=== PATIENT | female | born 1960 | race Caucasian/White ===

== ENCOUNTER 2022-11-13 08:13 | Outpatient (AMB) | payer OTHER, SELFPAY ==
--- OUTSIDE RECORDS SUMMARY | 2022-11-13 08:15 | XMS_ITS | Continuity of Care Document ---
Author Name Unknown Organization [facility] Address [address], [address], [address] [place] [phone]- Care Team Providers Care Sleep Technician Name Role Phone Azul FARNSWORTH, Dann Primary Care Physici an Encounter [facility] [place] Date(s): 02/04/20 - 03/05/20 [facility] [address], [address], [address] [place] [phone]- Allergies, Adverse Reactions, Alerts Substance Reaction Severity Status lisinopril Cough Active Vicodin itching Active Immunizations Given and Recorded Vaccine Date Status Refusal Reason Influenza Virus Vaccine (oldterm) 01/13/18 Recorde d diphtheria/tetanus/pertussis, acel(DTaP) 04/03/07 Recorded pneumococcal 23-valent vaccine 04/03/99 Recorded Medications aspirin 325 mg oral delayed release tablet 325 mg, 1, tablet, By Mouth, Daily, # 30 tablet, Refills 0, Maintenance, 10/07/19 15:25:00 EDT Start Date: 10/07/19 Status: Ordered buPROPion 200 mg/12 hours (SR) oral tablet, extended release 1 tablet = 200 mg, By Mouth, Daily, # 60 tablet, 0 Refills, Maintenance, 10/07/19 15:24:00 EDT, ER Tablet Start Date: 10/07/19 Status: Ordered Eliquis 5 mg oral tablet 1 tablet = 5 mg, By Mouth, 2 times a day, # 60 tablet, 0 Refills, Maintenance, 10/07/19 16:43:00 EDT, Tablet, [facility] #[id number], 159, cm, 10/07/19 15:22:00 EDT, Height, 91, kg, 06/04/18 11:18:00 EDT, Dry Weight Start Date: 10/07/19 Status: Ordered LORazepam 1 mg oral tablet 1 tablet = 1 mg, By Mouth, 2 times a day, PRN for anxiety, 0 Refills, Maintenance, 11/14/15 18:26:19 EDT, Tablet Start Date: 11/14/15 Status: Ordered losartan 50 mg oral tablet 1 tablet, By Mouth, Daily, # 90 tablet, 0 Refills, Maintenance, 12/29/19 17:37:00 EDT, [facility][id number], 159, cm, 10/12/19 10:28:00 EDT, Height, 91, kg, 06/04/18 11:18:00 EDT, Dry Weight Start Date: 12/29/19 Status: Ordered Nature-Throid 32.5 mg oral tablet 1 tablet = 32.5 mg, By Mouth, Daily, # 30 tablet, 0 Refills, Maintenance, 10/07/19 15:25:00 EDT, Tablet Start Date: 10/07/19 Status: Ordered Vitamin B12 100 mcg oral tablet 1 tablet = 100 mcg, By Mouth, Daily, # 30 tablet, 0 Refills, Maintenance, 10/01/18 14:32:59 EDT, Tablet Start Date: 10/01/18 Status: Ordered Vitamin D3 oral tablet 2 tablet = 800 International_Units, By Mouth, Daily, 0 Refills, Maintenance, 10/01/18 14:33:37 EDT Start Date: 10/01/18 Status: Ordered Vyvanse 10 mg oral capsule 2 capsule = 20 mg, TK 1 C PO BID, 0 Refills Start Date: 07/23/19 Status: Ordered Problem List Condition Effective Dates Status Health Status Inform ant Alcohol abuse(Confirmed) Active Amnesia(Confirmed) Active Anxiety(Confirmed) Active Asthma(Confirmed) Active Atrial fibrillation(Confirmed) Active Attention deficit hyperactiv ity disorder, predominantly inattentive type(Confirmed) Active Carpal tunnel syndrome(Confirmed) Active Cerebrovascular accident(Confirmed) Active Chronic pain(Confirmed) 1 Active Chronic type B viral hepatitis(Confirmed) Active Vitamin B12 deficiency(Confirmed) Active Depression(Confirmed) Active Disorder of parathyroid gland(Confirmed) Active Gastroesophageal reflux disease(Confirmed) Active History of cerebrovascular accident(Confirmed) Active Hypertension(Confirmed) Active Hypertensive renal disease(Confirmed) Active Hypothyroidism(Confirmed) Active Iron deficiency anemia(Confirmed) Active Cerebellar atrophy(Confirmed) Active Major depressive disorder(Confirmed) Active Migraine(Confirmed) Active Myoclonus(Confirmed) Active Obesity(Confirmed) Active Obstructive sleep apnea syndrome(Confirmed) Active Osteopenia(Confirmed) Active Primary hyperparathyroidism/ S/P parathyroidectomy and R lobe thyroidectomy(Confirmed) Active Sleep apnea(Confirmed) Active Vitamin D deficiency(Confirmed) Active 1L hand
--- OUTSIDE RECORDS SUMMARY | 2022-11-13 08:15 | XMS_ITS | Continuity of Care Document ---
Author Name Unknown Organization [facility] Address Unknown Care Team Providers Care House Calls Nurse Name Role Phone Azul FARNSWORTH, Dann Primary Care Physici an Encounter [facility] [place] Date(s): 09/07/20 - 01/05/21 [facility] Attending Physician: Betty Bourgeois MD Admitting Physician: Betty Bourgeois MD Referring Physician: Dann Liang MD Allergies, Adverse Reactions, Alerts Substance Reaction Severity Status lisinopril Cough Active Vicodin itching Active Immunizations Given and Recorded Vaccine Date Status Refusal Reason SARS-CoV-2 (COVID-19) mRNA-1273 vaccine 07/08/20 R ecorded Influenza Virus Vaccine (oldterm) 01/13/18 Recorde d [...] 0 Refills, Maintenance, 10/07/19 16:43:00 EDT, Tablet, [facility] #[id number], 159, cm, 10/07/19 15:22:00 EDT, Height, 91, kg, 06/04/18 11:18:00 EDT, Dry Weight Start Date: 10/07/19 Status: Ordered levothyroxine 0.1 mg oral tablet 1 tablet = 100 mcg, By Mouth, Daily, # 30 tablet, 0 Refills, Maintenance, 09/22/20 7:56:00 EDT, Tablet, Partial fill upon patient request if the prescription is for a schedule II opioid drug. Start Date: 09/22/20 Status: Ordered LORazepam 1 mg oral tablet 1 tablet = 1 mg, By Mouth, 2 times a day, PRN for anxiety, 0 Refills, Maintenance, 11/14/15 18:26:19 EDT, Tablet Start Date: 11/14/15 Status: Ordered losartan 50 mg oral tablet 1 tablet, By Mouth, Daily, # 90 tablet, 0 Refills, [facility] #[id number], 159, cm, 10/12/19 10:28:00 EDT, Height Start Date: 12/22/20 Status: Ordered Vitamin B12 100 mcg oral [...]
--- OUTSIDE RECORDS SUMMARY | 2022-11-13 08:15 | XMS_ITS | Continuity of Care Document ---
Author Name Unknown Organization [facility] Address Unknown Care Team Providers Care General Ledger Bookkeeper Name Role Phone Dann Liang MD Primary Care Physici an Encounter [facility] [place] Date(s): 01/26/21 - 04/06/21 [facility] Attending Physician: Betty Bourgeois MD Admitting Physician: Betty Bourgeois MD Referring Physician: Dann Liang MD Allergies, Adverse Reactions, Alerts Substance Reaction Severity Status lisinopril Cough Active Vicodin itching Active Immunizations Given and Recorded Vaccine Date Status Refusal Reason SARS-CoV-2 (COVID-19) mRNA-1273 vaccine 09/11/20 R ecorded SARS-CoV-2 (COVID-19) mRNA-1273 vaccine 07/08/20 R ecorded Influenza Virus Vaccine (oldterm) 01/13/18 Recorde d diphtheria/tetanus/pertussis, acel(DTaP) 04/03/07 Recorded pneumococcal 23-valent vaccine 04/03/99 Recorded Medications apixaban 5 mg oral tablet 1 tablet = 5 mg, By Mouth, 2 times a day, # 180 tablet, 3 Refills, Maintenance, 03/07/21 15:00:00 EST, Tablet, [facility] #[id number], Partial fill upon patient request if the prescription is for a schedule II opioid drug., 161, cm, 01/23/21 13:1... Start Date: 03/07/21 Status: Ordered aspirin 81 mg oral delayed release tablet 81 mg, 1, tablet, By Mouth, Daily, Patient was told that Aspirin and apixaban together would slightly increase bleeding risk., # 90 tablet, Refills 3, Tot. Refills 3, Maintenance, 03/07/21 15:03:00 EST, Route to Pharmacy Electronically, [facility] Start Date: 03/07/21 Status: Ordered buPROPion 200 mg/12 hours (SR) oral tablet, extended release 1 tablet = 200 mg, By Mouth, Daily, # 60 tablet, 0 Refills, Maintenance, 10/07/19 15:24:00 EDT, ER Tablet Start Date: 10/07/19 Status: Ordered levothyroxine 0.1 [...] Mouth, Daily, # 90 tablet, 0 Refills, [facility] #[id number], 159, cm, 10/12/19 10:28:00 EDT, Height Start [...] viral hepatitis(Confirmed) Active Vitamin B12 deficiency(Confirmed) Active Disorder of parathyroid gland(Confirmed) Active Gastroesophageal reflux disease(Confirmed) Active History of cerebrovascular accident(Confirmed) Active Hypertension(Confirmed) Active Hypertensive renal disease(Confirmed) Active Hypothyroidism(Confirmed) Active Iron deficiency anemia(Confirmed) Active Cerebellar atrophy(Confirmed) Active Major depressive disorder(Confirmed) Active Migraine(Confirmed) Active Myoclonus(Confirmed) Active Obese class I(Confirmed) Active Obesity(Confirmed) Active Obstructive sleep apnea syndrome(Confirmed) Active Osteopenia(Confirmed) Active Primary hyperparathyroidism/ S/P parathyroidectomy and R lobe thyroidectomy(Confirmed) Active Sleep apnea(Confirmed) Active Vitamin D deficiency(Confirmed) Active 1L hand Social History Social History Type Response Smoking Status Former smoker, quit more than 30 days ago entered on: 01/23/21 Sex
--- OUTSIDE RECORDS SUMMARY | 2022-11-13 08:15 | XMS_ITS | Continuity of Care Document ---
Author Name Unknown Organization [facility] Address Unknown Care Team Providers Care Rivet Spinner Name Role Phone Azul FARNSWORTH, aDnn Primary Care Physici an Encounter [facility] [place] Date(s): 12/06/20 - 01/05/21 [facility] Attending Physician: Blue Bradshaw Admitting Physician: Blue Bradshaw Referring Physician: Blue Bradshaw Allergies, Adverse Reactions, Alerts Substance Reaction Severity [...] 0 Refills, Maintenance, 10/07/19 16:43:00 EDT, Tablet, [facility] #[id number], 159, cm, 10/07/19 15:22:00 EDT, Height, 91, [...] Mouth, Daily, # 90 tablet, 0 Refills, [facility] #[id number], 159, cm, 10/12/19 10:28:00 EDT, Height Start [...]
--- OUTSIDE RECORDS SUMMARY | 2022-11-13 08:15 | XMS_ITS | Continuity of Care Document ---
Author Name Unknown Organization [facility] Address [address] [facility], [address] Floor, [address] [place] [phone]- Care Team Providers Care Software Engineer Mobile Name Role Phone Azul FARNSWORTH, Dann Primary Care Physici an Encounter [facility] [place] Date(s): 02/07/20 - 03/24/20 [facility] [address], [address], [address] [place] [phone]- Attending Physician: Betty Bourgeois MD Admitting Physician: Betty Bourgeois MD Referring Physician: Ramakrishna Krishnan MD Allergies, Adverse Reactions, Alerts Substance Reaction [...] 0 Refills, Maintenance, 10/07/19 16:43:00 EDT, Tablet, [facility] #[id number], 159, cm, 10/07/19 15:22:00 EDT, Height, 91, [...] Daily, # 90 tablet, 0 Refills, Maintenance, 03/22/20 9:16:00 EST, [facility] #[id number], 159, cm, 10/12/19 10:28:00 EDT, Height, 91, kg, 06/04/18 11:18:00 EDT, Dry Weight Start Date: 03/22/20 Status: Ordered Nature-Throid 32.5 mg oral tablet [...]
--- OUTSIDE RECORDS SUMMARY | 2022-11-13 08:15 | XMS_ITS | Continuity of Care Document ---
Author Name Unknown Organization [facility] Address Unknown Care Team Providers Care Line Production Cook Name Role Phone Azul FARNSWORTH, Dann Primary Care Physici an Encounter [facility] [place] Date(s): 12/06/20 - 01/05/21 [facility] Allergies, Adverse Reactions, Alerts Substance Reaction Severity [...] Maintenance, 10/07/19 16:43:00 EDT, Tablet, [facility] #[id number], 159, cm, 10/07/19 15:22:00 EDT, Height, 91, [...] Mouth, Daily, # 90 tablet, 0 Refills, [facility] #[id number], 159, cm, 10/12/19 10:28:00 EDT, Height Start [...]
--- OUTSIDE RECORDS SUMMARY | 2022-11-13 08:15 | XMS_ITS | Continuity of Care Document ---
Author Name Unknown Organization [facility] Address [address] [facility], [address] Floor, [address] [place] [phone]- Care Team Providers Care Superintendent Electric Power Name Role Phone Azul FARNSWORTH, Dann Primary Care Physici an [place] [facility] [place] Date(s): 02/23/20 - 03/24/20 [facility] [address], [address], [address] [place] [phone]- Attending Physician: Blue Bradshaw Admitting Physician: AdmBlue resendiz Referring Physician: AdmtrBlue Allergies, Adverse Reactions, Alerts Substance Reaction Severity [...] 0 Refills, Maintenance, 10/07/19 16:43:00 EDT, Tablet, [facility] #[id number], 159, cm, 10/07/19 15:22:00 EDT, Height, 91, [...] Refills, Maintenance, 03/22/20 9:16:00 EST, [facility] #[id number], 159, cm, 10/12/19 10:28:00 EDT, Height, 91, [...]
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
[2022-11-13 08:33] VITALS: BP 142/74; PULSE 64; RESP 16; TEMP 37.2; O2SAT 99; BMI 27.7
== END 2022-11-13 09:15 | disposition home or self-care (01) ==
PROVIDERS: PCP Internal Medicine; Visit Provider Family Medicine
DX: T30.0 Burn of unspecified body region, unspecified degree (principal); Z23 Encounter for immunization
CPT/HCPCS: 90471; 90715; 99203

== ENCOUNTER 2023-12-02 22:37 | Inpatient (IN) | payer OTHER, SELFPAY ==
--- NOTE | ~2023-12-02 | MR_ITS ---
EXAMINATION: MR BRAIN WITHOUT CONTRAST CLINICAL INFORMATION: Assessment of stroke injury. COMPARISON: CT head 10/22/2014. MR brain 09/05/2014. TECHNIQUE: MRI of the brain was obtained using routine sequences without contrast. FINDINGS: There is a small chronic cortical infarcts involving the right parietal lobe. A few tiny chronic infarcts are also visualized within both occipital lobes and within the cerebellar vermis. No acute territorial infarct. No pathological magnetic susceptibility artifact. Intracranial vascular flow voids are maintained. There is no intracranial mass effect or midline shift. No abnormal extra-axial collection. Lateral and third ventricles are normal. No hydrocephalus. Midline structures including the cervicomedullary junction are normal. No acute bone marrow signal changes. There is no mastoid or middle ear effusion. Trivial mucosal thickening within the ethmoid air cells. Globes and orbits are symmetric. MR/MR head/brain wo con IMPRESSION: Stable examination with a few small chronic cortical infarcts involving the right parietal lobe, both occipital lobes, and the cerebellar vermis. Otherwise unremarkable examination. No evidence of acute territorial infarct or hemorrhage. Electronically signed by: Tarik Collins MD 12/06/2023 06:03 PM EDT
[2023-12-02 22:41] VITALS: BP 152/98; PULSE 77; RESP 118; TEMP 36.6; O2SAT 97; BMI 25.7
[2023-12-02 23:15] LABS: Hematocrit 41.2 % (37.0-47.0); Hemoglobin 13.9 g/dl (12.0-16.0); Mean Corpuscular HGB Conc 33.7 g/dl (31.0-35.0); Mean Platelet Volume 9.8 fL (9.4-12.3); Platelet Count 290 X10*3/uL (160-400); Red Blood Count 4.79 X10*6/uL (4.20-5.50); Red Cell Distribution Width 12.6 % (11.0-16.0); White Blood Count 6.9 X10*3/uL (4.8-10.8)
[2023-12-02 23:36] LABS: Acetaminophen LAB < 3 mcg/mL (<30); Alanine Aminotransferase 11 U/L (0-31); Albumin Level 4.9 g/dL (3.5-5.0); Alkaline Phosphatase 59 U/L (39-117); Anion Gap 15 (12-20); Aspartate Amino Transferase 16 U/L (5-31); Bilirubin Total 0.6 mg/dL (0.0-1.0); Blood Urea Nitrogen 8 mg/dL (9-16); Calcium 10.8 mg/dL (8.4-10.2); Carbon Dioxide 25 mmol/L (22-29); Chloride 107 mmol/L (96-108); Creatinine Clr Calc Pharmacy 55.9; Estimated Glomerular Filt Rate 60; Ethanol < 10 mg/dL; Glucose Random 106 mg/dL (60-115); Potassium 3.6 mmol/L (3.3-5.1); Sodium 143 mmol/L (135-145); Total Protein 7.7 g/dL (6.5-8.0)
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
[2023-12-03 01:39] LABS: Amphetamine Screen Urine Not Detected (Not Detect); Barbiturates, Urine Not Detected (Not Detect); Benzodiazepines Screen Urine POSITIVE (Not Detect); Buprenorphine Scr Not Detected (Not Detect); Cannabinoid Screen Urine POSITIVE (Not Detect); Cocaine Screen Urine Not Detected (Not Detect); Fentanyl, urine Not Detected (Not Detect); Methadone Screen, Urine Not Detected (Not Detect); Opiate Screen Urine Not Detected (Not Detect); Oxycodone Screen Urine Not Detected (Not Detect); Phencyclidine Screen Urine Not Detected (Not Detect)
[2023-12-03 01:40] LABS: Appearance Urine Clear; Color Urine Yellow; Glucose Urine UA Negative (Negative); Leukocyte Esterase Urine Negative (Negative); Nitrite Urine Negative (Negative); Specific Gravity - Urine <= 1.005 (1.005-1.025); Urine Blood Negative (Negative); Urine Ketones Negative (Negative); Urine Protein Negative (Neg-Trace)
[2023-12-03 02:04] VITALS: BP 152/98
[2023-12-03] MEDS: traZODone HCL 25 MG HALFTAB PO (02:04)
[2023-12-03] MEDS: Doxazosin Mesylate 2 MG TABLET 4 MG PO ×2 (02:04→21:11)
--- NOTE | 2023-12-03 02:32 | PC.NURSE ---
Dustin Peraza [phone] Mayi [phone]
[2023-12-03] MEDS: Levothyroxine Sodium 100 MCG TABLET PO (06:30)
[2023-12-03 07:26] VITALS: BP 127/62; PULSE 59; RESP 14; TEMP 36.6; O2SAT 97
--- NOTE | 2023-12-03 08:01 | ECG_ITS ---
Test Reason : CHECH FOR PROLONGED QT Blood Pressure : / mmHG Vent. Rate : 047 BPM Atrial Rate : 047 BPM P-R Int : 182 ms QRS Dur : 080 ms QT Int : 448 ms P-R-T Axes : 063 016 040 degrees QTc Int : 396 ms Sinus bradycardia Otherwise normal ECG When compared with ECG of 19-JUL-2016 11:41, Nonspecific T wave abnormality no longer evident in Lateral leads Referred By: Generic ED Physician Electronically Signed By:TERENCE HICKS
--- NOTE | 2023-12-03 08:57 | MHC.CARE ---
[facility] form and assessment faxed today 12/03/23.
[2023-12-03] MEDS: busPIRone HCl 5 MG TABLET 7.5 MG PO ×2 (09:21→21:10)
[2023-12-03] MEDS: Amphetamine Mixed Salts 10 MG TABLET 5 MG PO (09:21)
[2023-12-03 15:13] VITALS: BP 143/73; PULSE 68; RESP 16; TEMP 36.8; O2SAT 97
[2023-12-03] MEDS: Magnesium Hydrox/Alum Hydrox 30 ML ORAL.SUSP PO (16:53)
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
[2023-12-03 20:00] VITALS: BP 146/91; PULSE 86; RESP 16; TEMP 36.9; O2SAT 93
[2023-12-03] MEDS: Acetaminophen 325 MG TABLET 650 MG PO (20:33)
[2023-12-03] MEDS: traZODone HCL 50 MG TABLET PO (21:10)
[2023-12-04] MEDS: Levothyroxine Sodium 100 MCG TABLET PO (06:31)
[2023-12-04 07:00] VITALS: BMI 26.1
[2023-12-04 07:45] VITALS: BP 139/79; PULSE 73; RESP 16; TEMP 36.4; O2SAT 95
[2023-12-04] MEDS: busPIRone HCl 5 MG TABLET 7.5 MG PO ×2 (08:19→21:16)
[2023-12-04 09:28] LABS: Estimated Average Glucose 103 mg/dL; Hemoglobin A1C 117.2387 umol/L; Hemoglobin A1c % 5.2 % (<6.0); Total Hemoglobin (HGBA1C) 3541.4948 umol/L
[2023-12-04 09:38] LABS: Cholesterol 187 mg/dL (<200); HDL Cholesterol 63 mg/dL (>40); LDL Cholesterol Calculated 108 mg/dL (<100); Triglycerides 80 mg/dL (<150)
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
[2023-12-04 09:58] LABS: Thyroid Stimulating Hormone 1.83 uIU/mL (0.32-4.0)
[2023-12-04 10:10] LABS: Folate 8.7 ng/mL (> or = 4.0); Vitamin B12 365 pg/mL (200-900)
[2023-12-04] MEDS: Acetaminophen 325 MG TABLET 650 MG PO (12:31)
[2023-12-04 20:00] VITALS: BP 140/77; PULSE 66; RESP 14; TEMP 36.1; O2SAT 98
[2023-12-04] MEDS: traZODone HCL 50 MG TABLET PO (21:17)
[2023-12-04] MEDS: Divalproex Sodium ER 500 MG TAB.ER.24H PO (21:17)
[2023-12-04] MEDS: chlorproMAZINE HCl 25 MG TABLET 50 MG PO (21:17)
[2023-12-04] MEDS: Doxazosin Mesylate 2 MG TABLET 4 MG PO (21:17)
[2023-12-05] MEDS: LORazepam 1 MG TABLET PO ×2 (05:48→22:25)
[2023-12-05] MEDS: Levothyroxine Sodium 100 MCG TABLET PO (05:48)
[2023-12-05 08:00] VITALS: BP 128/61; PULSE 107; RESP 16; TEMP 36.4; O2SAT 97
[2023-12-05] MEDS: busPIRone HCl 5 MG TABLET 7.5 MG PO ×2 (08:27→22:20)
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
--- NOTE | 2023-12-05 14:05 | HO.PSYCHPN ---
Subjective Subjective Date of Service: 12/05/23 Reason For Visit: Paranoia Interim History: much more calm and organized today, less labile and reactive. feels improved. slept well. would like to keep meds the same through friday then reassess. per staff, taking meds, visible. super high anxiety. up at 0400 tearful. had ativan close to 6 and back to sleep. slept 8 hours. Mental Status Exam Mental Status Exam Narrative: adequately dressed and groomed. no PMA/PMR. cooperative. speech incr rate, nml amount. nml loudness. decr latency. thoughts much more linear, logical. affect constricted, normo-intense, non-labile. mood improved. no SI/SIBI/HI/AVH expressed. Diagnostics Vital Signs (24Hr): Vital Signs - 24 hr 12/04/23 20:00 12/05/23 08:00 Temperature 97 F 97.6 F Pulse Rate 66 107 H Respiratory Rate 14 16 Blood Pressure 140/77 H 128/61 Pulse Oximetry 98 97 Oxygen Delivery Method Room Air Room Air BMI result Body Mass Index 26.1 Labs 12/02/23 23:10 12/02/23 23:10 Labs: Laboratory Results - last 48 hr 12/04/23 08:58 Estimat Average Glucose 103 Hemoglobin A1c % 5.2 Triglycerides 80 Cholesterol 187 LDL Cholesterol, Calc 108 H HDL Cholesterol 63 Vitamin B12 365 Folate 8.7 TSH 1.83 Free T4 1.20 Medications Medications Current Medications Acetaminophen (Acetaminophen 325 Mg Tablet) 650 mg PO Q6H PRN PRN Reason: Headache/Pain Mild Scale (1-3) Last Admin: 12/04/23 12:31 Dose: 650 mg Al Hydroxide/Mg Hydroxide (Magnesium Hydrox/Alum Hydrox 30 Ml Oral.Susp) 30 ml PO Q6H PRN PRN Reason: Heartburn/Nausea Last Admin: 12/03/23 16:53 Dose: 30 ml Buspirone HCl (Buspirone Hcl 5 Mg Tablet) 7.5 mg PO BID [facility] Last Admin: 12/05/23 08:27 Dose: 7.5 mg Chlorpromazine HCl (Chlorpromazine Hcl 25 Mg Tablet) 50 mg PO BEDTIME [facility] Last Admin: 12/04/23 21:17 Dose: 50 mg Divalproex Sodium (Divalproex Sodium Er 500 Mg Tab.Er.24h) 500 mg PO BEDTIME JUAN Last Admin: 12/04/23 21:17 Dose: 500 mg Doxazosin Mesylate (Doxazosin Mesylate 2 Mg Tablet) 4 mg PO BEDTIME [facility]; Protocol Last Admin: 12/04/23 21:17 Dose: 4 mg Hydroxyzine HCl (Hydroxyzine Hcl 25 Mg Tablet) 25 mg PO Q6H PRN PRN Reason: Anxiety Levothyroxine Sodium (Levothyroxine Sodium 100 Mcg Tablet) 100 mcg PO DAILY@0630 [facility] Last Admin: 12/05/23 05:48 Dose: 100 mcg Lorazepam (Lorazepam 1 Mg Tablet) 1 mg PO BID PRN PRN Reason: Anxiety Last Admin: 12/05/23 05:48 Dose: 1 mg Magnesium Hydroxide (Milk Of Magnesia 30 Ml Oral.Susp) 30 ml PO DAILY PRN PRN Reason: Constipation Nicotine Polacrilex (Nicotine Polacrilex 2 Mg Gum) 4 mg BUCCAL Q2H PRN PRN Reason: Nicotine Cravings Non-Formulary Medication (Liothyronine) 10 mcg PO BID [facility] Non-Formulary Medication ([place] 0-Hhc-Uff-Fish Oil [Fish Oil]) 2 cap PO DAILY [facility] Ondansetron HCl (Ondansetron Odt 8 Mg Tab.Rapdis) 8 mg TRANSLINGU Q8H PRN PRN Reason: Nausea and Vomiting Trazodone HCl (Trazodone Hcl 25 Mg Halftab) 25 mg PO BEDTIME PRN PRN Reason: insomnia Last Admin: 12/03/23 02:04 Dose: 25 mg Trazodone HCl (Trazodone Hcl 50 Mg Tablet) 50 mg PO BEDTIME MRX1 PRN PRN Reason: Insomnia Last Admin: 12/04/23 21:17 Dose: 50 mg Allergies Allergies Allergy/AdvReac Type Severity Reaction Status Date / Time No Known Allergies Allergy Verified 12/02/23 22:45 [No Known Allergies*] Assessment & Plan Assessment & Plan (1) History of stroke: Status: Acute Code(s): Z86.73 - Personal history of transient ischemic attack (TIA), and cerebral infarction without residual deficits Assessment and Plan: 63 years old woman with a remote history of ischemic infarctions of brain with no discernible abnormality of elementary neurological examination. Her behavioral symptomatology was always complicated by significant exposure to alcohol and drugs including opiates. It is difficult to say that those strokes have resulted in these symptoms. As far as further recommendations about strokes is concerned, which might have happened around a or delivery, MRI of brain without contrast is needed to evaluate. (2) Alcohol use disorder in remission: Status: Acute Code(s): F10.91 - Alcohol use, unspecified, in remission (3) PTSD (post-traumatic stress disorder): Status: Acute Code(s): F43.10 - Post-traumatic stress disorder, unspecified Plan 12/03: start VPA 500 mg QHS for affective reactivity s/p stroke. start thorazine 50 QHS for the same as well as paranoia. taper benzos prior to discharge. MoCA for cognitive baseline. neuro consult for any Tx suggestions related to brain area damaged in stroke. 12/04: much improved affect and thought organization today. slept well. continue current mgmt. neuro assessment and recs appreciated. Reason for continued inpatient stay Substantial Risk for: inability to function and rapid decompensation Time Spent With Patient Time: Total time managing care of this patient today __35__ minutes.
[2023-12-05 20:00] VITALS: BP 139/66; PULSE 80; RESP 16; TEMP 36.8; O2SAT 97
[2023-12-05] MEDS: traZODone HCL 50 MG TABLET PO (22:19)
[2023-12-05] MEDS: chlorproMAZINE HCl 25 MG TABLET 50 MG PO (22:20)
[2023-12-05] MEDS: Divalproex Sodium ER 500 MG TAB.ER.24H PO (22:20)
[2023-12-05] MEDS: Doxazosin Mesylate 2 MG TABLET 4 MG PO (22:20)
[2023-12-05] MEDS: Acetaminophen 325 MG TABLET 650 MG PO (22:25)
[2023-12-06] MEDS: Levothyroxine Sodium 100 MCG TABLET PO (06:52)
[2023-12-06 08:00] VITALS: BP 112/55; PULSE 56; RESP 16; TEMP 36.4; O2SAT 97
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
--- NOTE | 2023-12-06 08:26 | HO.PSYCHPN ---
Subjective Subjective Reason For Visit: Paranoia Diagnostics Vital Signs (24Hr): Vital Signs - 24 hr 12/05/23 20:00 12/06/23 08:00 Temperature 98.3 F 97.6 F Pulse Rate 80 56 Respiratory Rate 16 16 Blood Pressure 139/66 112/55 L Pulse Oximetry 97 97 Oxygen Delivery Method Room Air Room Air BMI result Body Mass Index 26.1 Labs 12/02/23 23:10 12/02/23 23:10 Labs: Laboratory Results - last 48 hr 12/04/23 08:58 Estimat Average Glucose 103 Hemoglobin A1c % 5.2 Triglycerides 80 Cholesterol 187 LDL Cholesterol, Calc 108 H HDL Cholesterol 63 Vitamin B12 365 Folate 8.7 TSH 1.83 Free T4 1.20 Medications Medications Current Medications Acetaminophen (Acetaminophen 325 Mg Tablet) 650 mg PO Q6H PRN PRN Reason: Headache/Pain Mild Scale (1-3) Last Admin: 12/05/23 22:25 Dose: 650 mg Al Hydroxide/Mg Hydroxide (Magnesium Hydrox/Alum Hydrox 30 Ml Oral.Susp) 30 ml PO Q6H PRN PRN Reason: Heartburn/Nausea Last Admin: 12/03/23 16:53 Dose: 30 ml Buspirone HCl (Buspirone Hcl 5 Mg Tablet) 7.5 mg PO BID [facility] Last Admin: 12/05/23 22:20 Dose: 7.5 mg Chlorpromazine HCl (Chlorpromazine Hcl 25 Mg Tablet) 50 mg PO BEDTIME [facility] Last Admin: 12/05/23 22:20 Dose: 50 mg Divalproex Sodium (Divalproex Sodium Er 500 Mg Tab.Er.24h) 500 mg PO BEDTIME [facility] Last Admin: 12/05/23 22:20 Dose: 500 mg Doxazosin Mesylate (Doxazosin Mesylate 2 Mg Tablet) 4 mg PO BEDTIME [facility]; Protocol Last Admin: 12/05/23 22:20 Dose: 4 mg Hydroxyzine HCl (Hydroxyzine Hcl 25 Mg Tablet) 25 mg PO Q6H PRN PRN Reason: Anxiety Levothyroxine Sodium (Levothyroxine Sodium 100 Mcg Tablet) 100 mcg PO DAILY@0630 [facility] Last Admin: 12/06/23 06:52 Dose: 100 mcg Lorazepam (Lorazepam 1 Mg Tablet) 1 mg PO BID PRN PRN Reason: Anxiety Last Admin: 10/04/24 22:25 Dose: 1 mg Magnesium Hydroxide (Milk Of Magnesia 30 Ml Oral.Susp) 30 ml PO DAILY PRN PRN Reason: Constipation Nicotine Polacrilex (Nicotine Polacrilex 2 Mg Gum) 4 mg BUCCAL Q2H PRN PRN Reason: Nicotine Cravings Non-Formulary Medication (Liothyronine) 10 mcg PO BID [facility] Non-Formulary Medication ([place] 8-Qbs-Bfs-Fish Oil [Fish Oil]) 2 cap PO DAILY [facility] Ondansetron HCl (Ondansetron Odt 8 Mg Tab.Rapdis) 8 mg TRANSLINGU Q8H PRN PRN Reason: Nausea and Vomiting Trazodone HCl (Trazodone Hcl 25 Mg Halftab) 25 mg PO BEDTIME PRN PRN Reason: insomnia Last Admin: 12/03/23 02:04 Dose: 25 mg Trazodone HCl (Trazodone Hcl 50 Mg Tablet) 50 mg PO BEDTIME MRX1 PRN PRN Reason: Insomnia Last Admin: 12/05/23 22:19 Dose: 50 mg Allergies Allergies Allergy/AdvReac Type Severity Reaction Status Date / Time No Known Allergies Allergy Verified 12/02/23 22:45 [No Known Allergies*] Assessment & Plan Assessment & Plan (1) History of stroke: Status: Acute Code(s): Z86.73 - Personal history of transient ischemic attack (TIA), and cerebral infarction without residual deficits Assessment and Plan: 63 years old woman with a remote history of ischemic infarctions of brain with no discernible abnormality of elementary neurological examination. Her behavioral symptomatology was always complicated by significant exposure to alcohol and drugs including opiates. It is difficult to say that those strokes have resulted in these symptoms. As far as further recommendations about strokes is concerned, which might have happened around a or delivery, MRI of brain without contrast is needed to evaluate. (2) Alcohol use disorder in remission: Status: Acute Code(s): F10.91 - Alcohol use, unspecified, in remission (3) PTSD (post-traumatic stress disorder): Status: Acute Code(s): F43.10 - Post-traumatic stress disorder, unspecified Plan 12/03: start VPA 500 mg QHS for affective reactivity s/p stroke. start thorazine 50 QHS for the same as well as paranoia. taper benzos prior to discharge. MoCA for cognitive baseline. neuro consult for any Tx suggestions related to brain area damaged in stroke. 12/04: much improved affect and thought organization today. slept well. continue current mgmt. neuro assessment and recs appreciated. Time Spent With Patient Time: Total time managing care of this patient today ____ minutes.
[2023-12-06] MEDS: busPIRone HCl 5 MG TABLET 7.5 MG PO ×2 (08:50→21:30)
[2023-12-06] MEDS: Bacitracin Oint 14 GM TUBE 1 APPL TOPICAL ×2 (14:33→21:52)
[2023-12-06 20:00] VITALS: BP 113/60; PULSE 66; RESP 16; TEMP 36.6; O2SAT 96
[2023-12-06] MEDS: Doxazosin Mesylate 2 MG TABLET 4 MG PO (21:31)
[2023-12-06] MEDS: chlorproMAZINE HCl 25 MG TABLET 50 MG PO (21:31)
[2023-12-06] MEDS: traZODone HCL 50 MG TABLET PO (21:31)
[2023-12-06] MEDS: Divalproex Sodium ER 500 MG TAB.ER.24H PO (21:31)
[2023-12-06] MEDS: LORazepam 1 MG TABLET PO (21:40)
[2023-12-06] MEDS: Acetaminophen 325 MG TABLET 650 MG PO (21:40)
[2023-12-07] MEDS: Levothyroxine Sodium 100 MCG TABLET PO (06:50)
[2023-12-07 07:41] VITALS: TEMP 36.2
[2023-12-07] MEDS: busPIRone HCl 5 MG TABLET 7.5 MG PO ×2 (09:00→20:41)
--- NOTE | 2023-12-07 11:03 | P.PNPSI_ITS ---
Subjective Subjective Date of Service: 12/07/23 Reason For Visit: Paranoia Subjective Notes: Conditional Voluntary Healthcare Proxy: No Guardianship: No Medical Problems Affecting Mental Status: Yes (possibly) Interim History: 63 yo with concerns over family jehovah's witnesses, former zoroastrianism and neighbors being after her- that women are giving false report to police- MRI showed small cortical infarcts- I offered to add rexulti for care today but pt so fearful of akathesia and wanting to understand MRI results chose to hold off till tomorrow with usual treatment team. Medication Compliance: Yes Side effects from medications: No Attending Groups: Yes Review of Systems Acute medical concerns: No possible- neuro changes? Mental Status Exam Mental Status Exam Patient Appearance: Well Grooomed and Appropriate Patient Orientation: Person, Place, Time and Situation Level of Consciousness: Awake and Alert Patient Behavior: Cooperative Behavior Comments: became tearful when I told pt sys of psychosis are exclusionary to continuing Ketamine- Mood Description: Anxious, Sad and Apprehensive Affect Description: Blunted Ability to Follow Directions: Fair Speech Pattern: Clear Hallucinations: None Delusions: Paranoid Ideation Thought Content: positive for Intact and positive for Circumstantial Depressive Symptoms: Increased Anxiety, Unhappiness and Difficulty Concentrating Abnormal Motor Activity Signs and Symptoms: Restlessness Judgement: Fair Diagnostics Vital Signs (24Hr): Vital Signs - 24 hr 12/06/23 20:00 12/07/23 07:41 Temperature 98 F 97.1 F Pulse Rate 66 Respiratory Rate 16 Blood Pressure 113/60 Pulse Oximetry 96 Oxygen Delivery Method Room Air Room Air BMI result Body Mass Index 26.1 Labs 12/02/23 23:10 12/02/23 23:10 Imaging Radiology Impressions: ITS Impressions Brain MRI 12/05/23 17:47 IMPRESSION: Stable examination with a few small chronic cortical infarcts involving the right parietal lobe, both occipital lobes, and the cerebellar vermis. Otherwise unremarkable examination. No evidence of acute territorial infarct or hemorrhage. Electronically signed by: Tarik Collins MD 12/06/2023 06:03 PM EDT Medications Medications Current Medications Acetaminophen (Acetaminophen 325 Mg Tablet) 650 mg PO Q6H PRN PRN Reason: Headache/Pain Mild Scale (1-3) Last Admin: 12/06/23 21:40 Dose: 650 mg Al Hydroxide/Mg Hydroxide (Magnesium Hydrox/Alum Hydrox 30 Ml Oral.Susp) 30 ml PO Q6H PRN PRN Reason: Heartburn/Nausea Last Admin: 12/03/23 16:53 Dose: 30 ml Bacitracin (Bacitracin Oint 14 Gm Tube) 1 appl TOPICAL BID [facility]; Protocol Last Admin: 12/07/23 09:58 Dose: Not Given Buspirone HCl (Buspirone Hcl 5 Mg Tablet) 7.5 mg PO BID [facility] Last Admin: 12/07/23 09:00 Dose: 7.5 mg Chlorpromazine HCl (Chlorpromazine Hcl 25 Mg Tablet) 50 mg PO BEDTIME [facility] Last Admin: 12/06/23 21:31 Dose: 50 mg Divalproex Sodium (Divalproex Sodium Er 500 Mg Tab.Er.24h) 500 mg PO BEDTIME [facility] Last Admin: 12/06/23 21:31 Dose: 500 mg Doxazosin Mesylate (Doxazosin Mesylate 2 Mg Tablet) 4 mg PO BEDTIME [facility]; Protocol Last Admin: 12/06/23 21:31 Dose: 4 mg Hydroxyzine HCl (Hydroxyzine Hcl 25 Mg Tablet) 25 mg PO Q6H PRN PRN Reason: Anxiety Levothyroxine Sodium (Levothyroxine Sodium 100 Mcg Tablet) 100 mcg PO DAILY@0630 [facility] Last Admin: 12/07/23 06:50 Dose: 100 mcg Lorazepam (Lorazepam 1 Mg Tablet) 1 mg PO BID PRN PRN Reason: Anxiety Last Admin: 12/06/23 21:40 Dose: 1 mg Magnesium Hydroxide (Milk Of Magnesia 30 Ml Oral.Susp) 30 ml PO DAILY PRN PRN Reason: Constipation Nicotine Polacrilex (Nicotine Polacrilex 2 Mg Gum) 4 mg BUCCAL Q2H PRN PRN Reason: Nicotine Cravings Non-Formulary Medication (Liothyronine) 10 mcg PO BID [facility] Non-Formulary Medication (Eads 4-Ipj-[id number]-Fish Oil [Fish Oil]) 2 cap PO DAILY [facility] Ondansetron HCl (Ondansetron Odt 8 Mg Tab.Rapdis) 8 mg TRANSLINGU Q8H PRN PRN Reason: Nausea and Vomiting Trazodone HCl (Trazodone Hcl 25 Mg Halftab) 25 mg PO BEDTIME PRN PRN Reason: insomnia Last Admin: 12/03/23 02:04 Dose: 25 mg Trazodone HCl (Trazodone Hcl 50 Mg Tablet) 50 mg PO BEDTIME MRX1 PRN PRN Reason: Insomnia Last Admin: 12/06/23 21:31 Dose: 50 mg Allergies Allergies Allergy/AdvReac Type Severity Reaction Status Date / Time No Known Allergies Allergy Verified 12/02/23 22:45 [No Known Allergies*] Assessment & Plan Assessment & Plan (1) History of stroke: Status: Acute Code(s): Z86.73 - Personal history of transient ischemic attack (TIA), and cerebral infarction without residual deficits Assessment and Plan: 63 years old woman with a remote history of ischemic infarctions of brain with no discernible abnormality of elementary neurological examination. Her behavioral symptomatology was always complicated by significant exposure to alcohol and drugs including opiates. It is difficult to say that those strokes have resulted in these symptoms. As far as further recommendations about strokes is concerned, which might have happened around a or delivery, MRI of brain without contrast is needed to evaluate. (2) Alcohol use disorder in remission: Status: Acute Code(s): F10.91 - Alcohol use, unspecified, in remission (3) PTSD (post-traumatic stress disorder): Status: Acute Code(s): F43.10 - Post-traumatic stress disorder, unspecified Plan 12/03: start VPA 500 mg QHS for affective reactivity s/p stroke. start thorazine 50 QHS for the same as well as paranoia. taper benzos prior to discharge. MoCA for cognitive baseline. neuro consult for any Tx suggestions related to brain area damaged in stroke. 12/04: much improved affect and thought organization today. slept well. continue current mgmt. neuro assessment and recs appreciated 12/05 continues improved still some xs speech and disorganized but affect not xs reactive today- 12/06 wonders about continuing ketamine, which I told patient is contraindicated given current symptomology- CTP consider rexulti add on or inc night typical psychotic- Patient educated on: medication risk/benefits Informed Consent: further education needed Reason for continued inpatient stay Substantial Risk for: rapid decompensation and med/psych decompensation Time Spent With Patient Time: Total time managing care of this patient today ____ minutes.
[2023-12-07] MEDS: LORazepam 1 MG TABLET PO (14:59)
[2023-12-07 20:38] VITALS: BP 128/68; PULSE 86; RESP 16; TEMP 36.8; O2SAT 97
[2023-12-07] MEDS: chlorproMAZINE HCl 25 MG TABLET 50 MG PO (20:40)
[2023-12-07] MEDS: Doxazosin Mesylate 2 MG TABLET 4 MG PO (20:40)
[2023-12-07] MEDS: Divalproex Sodium ER 500 MG TAB.ER.24H PO (20:41)
[2023-12-07] MEDS: traZODone HCL 50 MG TABLET PO (20:41)
[2023-12-08] MEDS: hydrOXYzine HCL 25 MG TABLET PO (04:30)
[2023-12-08] MEDS: Milk of Magnesia 30 ML ORAL.SUSP PO (04:30)
[2023-12-08] MEDS: Levothyroxine Sodium 100 MCG TABLET PO (06:49)
[2023-12-08 07:28] VITALS: BP 113/57; PULSE 63; RESP 16; TEMP 36.4; O2SAT 96
[2023-12-08] MEDS: busPIRone HCl 5 MG TABLET 7.5 MG PO ×2 (08:24→22:08)
--- NOTE | 2023-12-08 08:28 | PC.NURSE ---
refusing rexulti-reports HX of restless legs after taking in the past
[2023-12-08] MEDS: Bacitracin Oint 14 GM TUBE 1 APPL TOPICAL ×2 (08:29→22:06)
[2023-12-08] MEDS: Docusate Sodium 100 MG CAPSULE PO ×2 (12:07→22:07)
[2023-12-08] MEDS: Acetaminophen 325 MG TABLET 650 MG PO (12:17)
--- NOTE | 2023-12-08 12:47 | PC.NURSE ---
Pt was administered a MOCA on 12/08/2023. Pt scored 20 out of 30, indicative of mild cognitive impairment. Pt's provider Dr. Amauri Aranda was notified of pt's score.
[2023-12-08] MEDS: LORazepam 0.5 MG TABLET PO (13:49)
--- NOTE | 2023-12-08 15:01 | P.PNPSI_ITS ---
Subjective Subjective Date of Service: 12/08/23 Reason For Visit: Paranoia Interim History: labile, delusional. declines med increases. agreeable to taper ativan. wants brexulti DCed. per staff, labile. taking meds. tearful at times. paranoid. slept 7 hours. c/o dry mouth, constipation. Mental Status Exam Mental Status Exam Narrative: adequately dressed and groomed. no PMA/PMR. cooperative. speech incr rate, amount. nml loudness. decr latency. thoughts more tangential, loose. affect constricted, hyper-intense, min-labile. mood anxious. no SI/SIBI/HI/AVH expressed. Diagnostics Vital Signs (24Hr): Vital Signs - 24 hr 12/07/23 20:38 12/08/23 07:28 Temperature 98.3 F 97.6 F Pulse Rate 86 63 Respiratory Rate 16 16 Blood Pressure 128/68 113/57 L Pulse Oximetry 97 96 Oxygen Delivery Method Room Air Room Air BMI result Body Mass Index 26.1 Labs 12/02/23 23:10 12/02/23 23:10 Imaging Radiology Impressions: ITS Impressions Brain MRI 12/05/23 17:47 IMPRESSION: Stable examination with a few small chronic cortical infarcts involving the right parietal lobe, both occipital lobes, and the cerebellar vermis. Otherwise unremarkable examination. No evidence of acute territorial infarct or hemorrhage. Electronically signed by: Tarik Collins MD 12/06/2023 06:03 PM EDT RP Medications Medications Current Medications Acetaminophen (Acetaminophen 325 Mg Tablet) 650 mg PO Q6H PRN PRN Reason: Headache/Pain Mild Scale (1-3) Last Admin: 12/08/23 12:17 Dose: 650 mg Al Hydroxide/Mg Hydroxide (Magnesium Hydrox/Alum Hydrox 30 Ml Oral.Susp) 30 ml PO Q6H PRN PRN Reason: Heartburn/Nausea Last Admin: 12/03/23 16:53 Dose: 30 ml Bacitracin (Bacitracin Oint 14 Gm Tube) 1 appl TOPICAL BID [facility]; Protocol Last Admin: 12/08/23 08:29 Dose: 1 appl Benzocaine (Throat Lozenge, Medicated Lozenge) 1 lozenge MUCOUS MEM Q2H PRN PRN Reason: Sore Throat Benztropine Mesylate (Benztropine Mesylate 1 Mg Tablet) 1 mg PO TID PRN PRN Reason: Extrapyramidal Effects Buspirone HCl (Buspirone Hcl 5 Mg Tablet) 7.5 mg PO BID [facility] Last Admin: 12/08/23 08:24 Dose: 7.5 mg Chlorpromazine HCl (Chlorpromazine Hcl 25 Mg Tablet) 50 mg PO BEDTIME [facility] Last Admin: 12/07/23 20:40 Dose: 50 mg Diphenhydramine HCl (Diphenhydramine Hcl 25 Mg Capsule) 50 mg PO Q6H PRN PRN Reason: Extrapyramidal Effects Divalproex Sodium (Divalproex Sodium Er 500 Mg Tab.Er.24h) 500 mg PO BEDTIME [facility] Last Admin: 12/07/23 20:41 Dose: 500 mg Docusate Sodium (Docusate Sodium 100 Mg Capsule) 100 mg PO BID [facility] Last Admin: 12/08/23 12:07 Dose: 100 mg Doxazosin Mesylate (Doxazosin Mesylate 2 Mg Tablet) 4 mg PO BEDTIME [facility]; Protocol Last Admin: 12/07/23 20:40 Dose: 4 mg Hydroxyzine HCl (Hydroxyzine Hcl 25 Mg Tablet) 25 mg PO Q6H PRN PRN Reason: Anxiety Last Admin: 12/08/23 04:30 Dose: 25 mg Levothyroxine Sodium (Levothyroxine Sodium 100 Mcg Tablet) 100 mcg PO DAILY@0630 [facility] Last Admin: 12/08/23 06:49 Dose: 100 mcg Lorazepam (Lorazepam 0.5 Mg Tablet) 0.5 mg PO BID PRN PRN Reason: Anxiety Last Admin: 12/08/23 13:49 Dose: 0.5 mg Magnesium Hydroxide (Milk Of Magnesia 30 Ml Oral.Susp) 30 ml PO DAILY PRN PRN Reason: Constipation Last Admin: 12/08/23 04:30 Dose: 30 ml Nicotine Polacrilex (Nicotine Polacrilex 2 Mg Gum) 4 mg BUCCAL Q2H PRN PRN Reason: Nicotine Cravings Ondansetron HCl (Ondansetron Odt 8 Mg Tab.Rapdis) 8 mg TRANSLINGU Q8H PRN PRN Reason: Nausea and Vomiting Trazodone HCl (Trazodone Hcl 25 Mg Halftab) 25 mg PO BEDTIME PRN PRN Reason: insomnia Last Admin: 12/03/23 02:04 Dose: 25 mg Trazodone HCl (Trazodone Hcl 50 Mg Tablet) 50 mg PO BEDTIME MRX1 PRN PRN Reason: Insomnia Last Admin: 12/07/23 20:41 Dose: 50 mg Allergies Allergies Allergy/AdvReac Type Severity Reaction Status Date / Time No Known Allergies Allergy Verified 12/02/23 22:45 [No Known Allergies*] Assessment & Plan Assessment & Plan (1) History of stroke: Status: Acute Code(s): Z86.73 - Personal history of transient ischemic attack (TIA), and cerebral infarction without residual deficits Assessment and Plan: 63 years old woman with a remote history of ischemic infarctions of brain with no discernible abnormality of elementary neurological examination. Her behavioral symptomatology was always complicated by significant exposure to alcohol and drugs including opiates. It is difficult to say that those strokes have resulted in these symptoms. As far as further recommendations about strokes is concerned, which might have happened around a or delivery, MRI of brain without contrast is needed to evaluate. (2) Alcohol use disorder in remission: Status: Acute Code(s): F10.91 - Alcohol use, unspecified, in remission (3) PTSD (post-traumatic stress disorder): Status: Acute Code(s): F43.10 - Post-traumatic stress disorder, unspecified Plan 12/03: start VPA 500 mg QHS for affective reactivity s/p stroke. start thorazine 50 QHS for the same as well as paranoia. taper benzos prior to discharge. MoCA for cognitive baseline. neuro consult for any Tx suggestions related to brain area damaged in stroke. 12/04: much improved affect and thought organization today. slept well. continue current mgmt. neuro assessment and recs appreciated 12/05 continues improved still some xs speech and disorganized but affect not xs reactive today- 12/06 wonders about continuing ketamine, which I told patient is contraindicated given current symptomology- CTP consider rexulti add on or inc night typical psychotic- 12/07: more reactive,labile, disorganized than last friday. declining to increase medications. c/o anti-Ch s/e. start lozenge and colace. Reason for continued inpatient stay Substantial Risk for: inability to function Time Spent With Patient Time: Total time managing care of this patient today __35__ minutes.
[2023-12-08 21:58] VITALS: BP 118/65; PULSE 68; RESP 16; TEMP 36.5; O2SAT 98
[2023-12-08] MEDS: Doxazosin Mesylate 2 MG TABLET 4 MG PO (22:07)
[2023-12-08] MEDS: chlorproMAZINE HCl 25 MG TABLET 50 MG PO (22:08)
[2023-12-08] MEDS: Divalproex Sodium ER 500 MG TAB.ER.24H PO (22:08)
[2023-12-09] MEDS: Levothyroxine Sodium 100 MCG TABLET PO (06:51)
[2023-12-09 07:49] VITALS: BP 109/64; PULSE 74; RESP 14; TEMP 36.4; O2SAT 98
[2023-12-09] MEDS: Bacitracin Oint 14 GM TUBE 1 APPL TOPICAL ×2 (08:39→22:46)
[2023-12-09] MEDS: busPIRone HCl 5 MG TABLET 7.5 MG PO ×2 (08:42→22:17)
[2023-12-09] MEDS: Docusate Sodium 100 MG CAPSULE PO ×2 (08:43→22:17)
[2023-12-09] MEDS: Milk of Magnesia 30 ML ORAL.SUSP PO (13:21)
--- NOTE | 2023-12-09 16:06 | HO.PSYCHPN ---
Subjective Subjective Date of Service: 12/09/23 Reason For Visit: Paranoia Interim History: second-guessing her paranoia. labile. agrees to increase VPA. per staff, paranoid, labile, withdrawn. fearful of returning to apt. describes herself as paranoid. slept well. Mental Status Exam Mental Status Exam Narrative: adequately dressed and groomed. no PMA/PMR. cooperative. speech incr rate, amount. nml loudness. decr latency. thoughts more tangential, loose. affect constricted, hyper-intense, min-labile. mood anxious. no SI/SIBI/HI/AVH expressed. Diagnostics Vital Signs (24Hr): Vital Signs - 24 hr 12/08/23 21:58 12/09/23 07:49 Temperature 97.7 F 97.5 F Pulse Rate 68 74 Respiratory Rate 16 14 Blood Pressure 118/65 109/64 Pulse Oximetry 98 98 Oxygen Delivery Method Room Air Room Air BMI result Body Mass Index 26.1 Labs 12/02/23 23:10 12/02/23 23:10 Imaging Radiology Impressions: ITS Impressions Brain MRI 12/05/23 17:47 IMPRESSION: Stable examination with a few small chronic cortical infarcts involving the right parietal lobe, both occipital lobes, and the cerebellar vermis. Otherwise unremarkable examination. No evidence of acute territorial infarct or hemorrhage. Electronically signed by: Tarik Collins MD 12/06/2023 06:03 PM EDT RP Medications Medications Current Medications Acetaminophen (Acetaminophen 325 Mg Tablet) 650 mg PO Q6H PRN PRN Reason: Headache/Pain Mild Scale (1-3) Last Admin: 12/08/23 12:17 Dose: 650 mg Al Hydroxide/Mg Hydroxide (Magnesium Hydrox/Alum Hydrox 30 Ml Oral.Susp) 30 ml PO Q6H PRN PRN Reason: Heartburn/Nausea Last Admin: 12/03/23 16:53 Dose: 30 ml Bacitracin (Bacitracin Oint 14 Gm Tube) 1 appl TOPICAL BID [facility]; Protocol Last Admin: 12/09/23 08:39 Dose: 1 appl Benzocaine (Throat Lozenge, Medicated Lozenge) 1 lozenge MUCOUS MEM Q1H PRN PRN Reason: Sore Throat Benztropine Mesylate (Benztropine Mesylate 1 Mg Tablet) 1 mg PO TID PRN PRN Reason: Extrapyramidal Effects Buspirone HCl (Buspirone Hcl 5 Mg Tablet) 7.5 mg PO BID [facility] Last Admin: 12/09/23 08:42 Dose: 7.5 mg Chlorpromazine HCl (Chlorpromazine Hcl 25 Mg Tablet) 50 mg PO BEDTIME [facility] Last Admin: 12/08/23 22:08 Dose: 50 mg Diphenhydramine HCl (Diphenhydramine Hcl 25 Mg Capsule) 50 mg PO Q6H PRN PRN Reason: Extrapyramidal Effects Divalproex Sodium (Divalproex Sodium Er 250 Mg Tab.Er.24h) 750 mg PO BEDTIME [facility] Docusate Sodium (Docusate Sodium 100 Mg Capsule) 100 mg PO BID [facility] Last Admin: 12/09/23 08:43 Dose: 100 mg Doxazosin Mesylate (Doxazosin Mesylate 2 Mg Tablet) 4 mg PO BEDTIME [facility]; Protocol Last Admin: 12/08/23 22:07 Dose: 4 mg Hydroxyzine HCl (Hydroxyzine Hcl 25 Mg Tablet) 25 mg PO Q6H PRN PRN Reason: Anxiety Last Admin: 12/08/23 04:30 Dose: 25 mg Levothyroxine Sodium (Levothyroxine Sodium 100 Mcg Tablet) 100 mcg PO DAILY@0630 [facility] Last Admin: 12/09/23 06:51 Dose: 100 mcg Lorazepam (Lorazepam 0.5 Mg Tablet) 0.5 mg PO BID PRN PRN Reason: Anxiety Last Admin: 12/08/23 13:49 Dose: 0.5 mg Magnesium Hydroxide (Milk Of Magnesia 30 Ml Oral.Susp) 30 ml PO DAILY PRN PRN Reason: Constipation Last Admin: 12/09/23 13:21 Dose: 30 ml Nicotine Polacrilex (Nicotine Polacrilex 2 Mg Gum) 4 mg BUCCAL Q2H PRN PRN Reason: Nicotine Cravings Ondansetron HCl (Ondansetron Odt 8 Mg Tab.Rapdis) 8 mg TRANSLINGU Q8H PRN PRN Reason: Nausea and Vomiting Trazodone HCl (Trazodone Hcl 25 Mg Halftab) 25 mg PO BEDTIME PRN PRN Reason: insomnia Last Admin: 12/03/23 02:04 Dose: 25 mg Trazodone HCl (Trazodone Hcl 50 Mg Tablet) 50 mg PO BEDTIME MRX1 PRN PRN Reason: Insomnia Last Admin: 12/07/23 20:41 Dose: 50 mg Allergies Allergies Allergy/AdvReac Type Severity Reaction Status Date / Time No Known Allergies Allergy Verified 12/02/23 22:45 [No Known Allergies*] Assessment & Plan Assessment & Plan (1) History of stroke: Status: Acute Code(s): Z86.73 - Personal history of transient ischemic attack (TIA), and cerebral infarction without residual deficits Assessment and Plan: 63 years old woman with a remote history of ischemic infarctions of brain with no discernible abnormality of elementary neurological examination. Her behavioral symptomatology was always complicated by significant exposure to alcohol and drugs including opiates. It is difficult to say that those strokes have resulted in these symptoms. As far as further recommendations about strokes is concerned, which might have happened around a or delivery, MRI of brain without contrast is needed to evaluate. (2) Alcohol use disorder in remission: Status: Acute Code(s): F10.91 - Alcohol use, unspecified, in remission (3) PTSD (post-traumatic stress disorder): Status: Acute Code(s): F43.10 - Post-traumatic stress disorder, unspecified Plan 12/03: start VPA 500 mg QHS for affective reactivity s/p stroke. start thorazine 50 QHS for the same as well as paranoia. taper benzos prior to discharge. MoCA for cognitive baseline. neuro consult for any Tx suggestions related to brain area damaged in stroke. 12/04: much improved affect and thought organization today. slept well. continue current mgmt. neuro assessment and recs appreciated 12/05 continues improved still some xs speech and disorganized but affect not xs reactive today- 12/06 wonders about continuing ketamine, which I told patient is contraindicated given current symptomology- CTP consider rexulti add on or inc night typical psychotic- 12/07: more reactive,labile, disorganized than last friday. declining to increase medications. c/o anti-Ch s/e. start lozenge and colace. 12/08: labile. agreeable to increase VPA to 750 mg QHS. otherwise continue current mgmt. Reason for continued inpatient stay Substantial Risk for: inability to function and rapid decompensation Time Spent With Patient Time: Total time managing care of this patient today __25__ minutes.
[2023-12-09 22:13] VITALS: BP 153/69; PULSE 98; RESP 16; TEMP 36.2; O2SAT 98
[2023-12-09] MEDS: Divalproex Sodium ER 250 MG TAB.ER.24H 750 MG PO (22:15)
[2023-12-09] MEDS: chlorproMAZINE HCl 25 MG TABLET 50 MG PO (22:16)
[2023-12-09] MEDS: traZODone HCL 50 MG TABLET PO (22:16)
[2023-12-09] MEDS: hydrOXYzine HCL 25 MG TABLET PO (22:17)
[2023-12-09] MEDS: Doxazosin Mesylate 2 MG TABLET 4 MG PO (22:18)
[2023-12-09] MEDS: Throat Lozenge, Medicated LOZENGE 1 LOZENGE MUCOUS MEM (22:46)
[2023-12-10] MEDS: Levothyroxine Sodium 100 MCG TABLET PO (06:52)
[2023-12-10 07:25] VITALS: BP 96/57; PULSE 71; RESP 14; TEMP 36.4; O2SAT 97
[2023-12-10] MEDS: Docusate Sodium 100 MG CAPSULE PO ×2 (09:07→22:03)
[2023-12-10] MEDS: busPIRone HCl 5 MG TABLET 7.5 MG PO ×2 (09:07→21:57)
--- NOTE | 2023-12-10 14:40 | P.PNPSI_ITS ---
Subjective Subjective Date of Service: 12/10/23 Reason For Visit: Paranoia Interim History: mildly more linear and less labile than yesterday. very verbal, MD required to end interview by standing. prefers alternate to thorazine, agrees to seroquel for sleep. also focused on ferritin level after seeing Dr. Beach, requesting ferritin level. per staff, labile, visible, taking meds. +grps. slept about 7 hours. Mental Status Exam Mental Status Exam Narrative: adequately dressed and groomed. no PMA/PMR. cooperative. speech incr rate, amount. nml loudness. decr latency. thoughts more organized and linear again today. affect constricted, hyper-intense, min-labile. mood anxious. no SI/SIBI/HI/AVH expressed. Diagnostics Vital Signs (24Hr): Vital Signs - 24 hr 12/09/23 22:13 12/10/23 07:25 Temperature 97.1 F 97.5 F Pulse Rate 98 71 Respiratory Rate 16 14 Blood Pressure 153/69 H 96/57 L Pulse Oximetry 98 97 Oxygen Delivery Method Room Air Room Air BMI result Body Mass Index 26.1 Labs 12/02/23 23:10 12/02/23 23:10 Imaging Radiology Impressions: ITS Impressions Brain MRI 12/05/23 17:47 IMPRESSION: Stable examination with a few small chronic cortical infarcts involving the right parietal lobe, both occipital lobes, and the cerebellar vermis. Otherwise unremarkable examination. No evidence of acute territorial infarct or hemorrhage. Electronically signed by: Tarik Collins MD 12/06/2023 06:03 PM EDT Medications Medications Current Medications Acetaminophen (Acetaminophen 325 Mg Tablet) 650 mg PO Q6H PRN PRN Reason: Headache/Pain Mild Scale (1-3) Last Admin: 12/08/23 12:17 Dose: 650 mg Al Hydroxide/Mg Hydroxide (Magnesium Hydrox/Alum Hydrox 30 Ml Oral.Susp) 30 ml PO Q6H PRN PRN Reason: Heartburn/Nausea Last Admin: 12/03/23 16:53 Dose: 30 ml Bacitracin (Bacitracin Oint 14 Gm Tube) 1 appl TOPICAL BID [facility]; Protocol Last Admin: 12/10/23 09:23 Dose: Not Given Benzocaine (Throat Lozenge, Medicated Lozenge) 1 lozenge MUCOUS MEM Q1H PRN PRN Reason: Sore Throat Last Admin: 12/09/23 22:46 Dose: 1 lozenge Benztropine Mesylate (Benztropine Mesylate 1 Mg Tablet) 1 mg PO TID PRN PRN Reason: Extrapyramidal Effects Buspirone HCl (Buspirone Hcl 5 Mg Tablet) 7.5 mg PO BID [facility] Last Admin: 12/10/23 09:07 Dose: 7.5 mg Diphenhydramine HCl (Diphenhydramine Hcl 25 Mg Capsule) 50 mg PO Q6H PRN PRN Reason: Extrapyramidal Effects Divalproex Sodium (Divalproex Sodium Er 250 Mg Tab.Er.24h) 750 mg PO BEDTIME [facility] Last Admin: 12/09/23 22:15 Dose: 750 mg Docusate Sodium (Docusate Sodium 100 Mg Capsule) 100 mg PO BID [facility] Last Admin: 12/10/23 09:07 Dose: 100 mg Doxazosin Mesylate (Doxazosin Mesylate 2 Mg Tablet) 4 mg PO BEDTIME [facility]; Protocol Last Admin: 12/09/23 22:18 Dose: 4 mg Hydroxyzine HCl (Hydroxyzine Hcl 25 Mg Tablet) 25 mg PO Q6H PRN PRN Reason: Anxiety Last Admin: 12/09/23 22:17 Dose: 25 mg Levothyroxine Sodium (Levothyroxine Sodium 100 Mcg Tablet) 100 mcg PO DAILY@0630 [facility] Last Admin: 12/10/23 06:52 Dose: 100 mcg Lorazepam (Lorazepam 0.5 Mg Tablet) 0.5 mg PO BID PRN PRN Reason: Anxiety Last Admin: 12/08/23 13:49 Dose: 0.5 mg Magnesium Hydroxide (Milk Of Magnesia 30 Ml Oral.Susp) 30 ml PO DAILY PRN PRN Reason: Constipation Last Admin: 12/09/23 13:21 Dose: 30 ml Nicotine Polacrilex (Nicotine Polacrilex 2 Mg Gum) 4 mg BUCCAL Q2H PRN PRN Reason: Nicotine Cravings Ondansetron HCl (Ondansetron Odt 8 Mg Tab.Rapdis) 8 mg TRANSLINGU Q8H PRN PRN Reason: Nausea and Vomiting Quetiapine Fumarate (Quetiapine Fumarate 50 Mg Tablet) 50 mg PO BEDTIME [facility] Quetiapine Fumarate (Quetiapine Fumarate 50 Mg Tablet) 50 mg PO BEDTIME PRN PRN Reason: insomnia Allergies Allergies Allergy/AdvReac Type Severity Reaction Status Date / Time No Known Allergies Allergy Verified 12/02/23 22:45 [No Known Allergies*] Assessment & Plan Assessment & Plan (1) History of stroke: Status: Acute Code(s): Z86.73 - Personal history of transient ischemic attack (TIA), and cerebral infarction without residual deficits Assessment and Plan: 63 years old woman with a remote history of ischemic infarctions of brain with no discernible abnormality of elementary neurological examination. Her behavioral symptomatology was always complicated by significant exposure to alcohol and drugs including opiates. It is difficult to say that those strokes have resulted in these symptoms. As far as further recommendations about strokes is concerned, which might have happened around a or delivery, MRI of brain without contrast is needed to evaluate. (2) Alcohol use disorder in remission: Status: Acute Code(s): F10.91 - Alcohol use, unspecified, in remission (3) PTSD (post-traumatic stress disorder): Status: Acute Code(s): F43.10 - Post-traumatic stress disorder, unspecified Plan 12/03: start VPA 500 mg QHS for affective reactivity s/p stroke. start thorazine 50 QHS for the same as well as paranoia. taper benzos prior to discharge. MoCA for cognitive baseline. neuro consult for any Tx suggestions related to brain area damaged in stroke. 12/04: much improved affect and thought organization today. slept well. continue current mgmt. neuro assessment and recs appreciated 12/05 continues improved still some xs speech and disorganized but affect not xs reactive today- 12/06 wonders about continuing ketamine, which I told patient is contraindicated given current symptomology- CTP consider rexulti add on or inc night typical psychotic- 12/07: more reactive,labile, disorganized than last friday. declining to increase medications. c/o anti-Ch s/e. start lozenge and colace. 12/08: labile. agreeable to increase VPA to 750 mg QHS. otherwise continue current mgmt. 12/09: slightly less labile, more organized today. asking to DC thorazine and try something else due to stigma. agreeable to seroquel trial. Reason for continued inpatient stay Substantial Risk for: harm to self, harm to others, inability to function and rapid decompensation Time Spent With Patient Time: Total time managing care of this patient today _35___ minutes.
[2023-12-10 20:00] VITALS: BP 119/86; PULSE 66; RESP 18; TEMP 36.4; O2SAT 96
[2023-12-10 21:36] LABS: Ferritin 46 ng/mL (10-250)
[2023-12-10 21:58] VITALS: BP 120/82
[2023-12-10] MEDS: Doxazosin Mesylate 2 MG TABLET 4 MG PO (21:58)
[2023-12-10] MEDS: Divalproex Sodium ER 250 MG TAB.ER.24H 750 MG PO (22:02)
[2023-12-10] MEDS: QUEtiapine Fumarate 50 MG TABLET PO (22:02)
[2023-12-10] MEDS: hydrOXYzine HCL 25 MG TABLET PO (22:07)
[2023-12-10] MEDS: Acetaminophen 325 MG TABLET 650 MG PO (22:08)
[2023-12-10] MEDS: LORazepam 0.5 MG TABLET PO (22:08)
[2023-12-10] MEDS: Bacitracin Oint 14 GM TUBE 1 APPL TOPICAL (22:10)
[2023-12-11] MEDS: Levothyroxine Sodium 100 MCG TABLET PO (06:41)
[2023-12-11 07:00] VITALS: BMI 26.4
[2023-12-11 08:00] VITALS: BP 119/70; PULSE 72; RESP 18; TEMP 36.4; O2SAT 96
[2023-12-11] MEDS: busPIRone HCl 5 MG TABLET 7.5 MG PO ×2 (08:29→22:00)
[2023-12-11] MEDS: Docusate Sodium 100 MG CAPSULE PO ×2 (08:29→22:01)
[2023-12-11] MEDS: Bacitracin Oint 14 GM TUBE 1 APPL TOPICAL ×2 (08:47→21:59)
--- NOTE | 2023-12-11 15:26 | HO.PSYCHPN ---
Subjective Subjective Date of Service: 12/11/23 Reason For Visit: Paranoia Interim History: calm, cooperative. organized, non-labile. looking better today than any day prior. c/o poor sleep. agreeable to increase seroquel to 100 mg QHS. per staff, labile, paranoid. people are giving me dirty looks. got ativan, atarax, HS meds at same time, appeared to have slept. Mental Status Exam Mental Status Exam Narrative: adequately dressed and groomed. no PMA/PMR. cooperative. speech incr rate, amount. nml loudness. decr latency. thoughts organized and linear. affect constricted, normo-intense, non-labile. mood anxious. no SI/SIBI/HI/AVH expressed. Diagnostics Vital Signs (24Hr): Vital Signs - 24 hr 12/10/23 20:00 12/10/23 21:58 12/11/23 08:00 Temperature 97.6 F 97.5 F Pulse Rate 66 72 Respiratory Rate 18 18 Blood Pressure 119/86 120/82 119/70 Pulse Oximetry 96 96 Oxygen Delivery Method Room Air Room Air BMI result Body Mass Index 26.4 Labs 12/02/23 23:10 12/02/23 23:10 Labs: Laboratory Results - last 48 hr 12/10/23 20:46 Ferritin 46 Imaging Radiology Impressions: ITS Impressions Brain MRI 12/05/23 17:47 IMPRESSION: Stable examination with a few small chronic cortical infarcts involving the right parietal lobe, both occipital lobes, and the cerebellar vermis. Otherwise unremarkable examination. No evidence of acute territorial infarct or hemorrhage. Electronically signed by: Tarik Collins MD 12/06/2023 06:03 PM EDT RP Medications Medications Current Medications Acetaminophen (Acetaminophen 325 Mg Tablet) 650 mg PO Q6H PRN PRN Reason: Headache/Pain Mild Scale (1-3) Last Admin: 12/10/23 22:08 Dose: 650 mg Al Hydroxide/Mg Hydroxide (Magnesium Hydrox/Alum Hydrox 30 Ml Oral.Susp) 30 ml PO Q6H PRN PRN Reason: Heartburn/Nausea Last Admin: 12/03/23 16:53 Dose: 30 ml Bacitracin (Bacitracin Oint 14 Gm Tube) 1 appl TOPICAL BID [facility]; Protocol Last Admin: 12/11/23 08:47 Dose: 1 appl Benzocaine (Throat Lozenge, Medicated Lozenge) 1 lozenge MUCOUS MEM Q1H PRN PRN Reason: Sore Throat Last Admin: 12/09/23 22:46 Dose: 1 lozenge Benztropine Mesylate (Benztropine Mesylate 1 Mg Tablet) 1 mg PO TID PRN PRN Reason: Extrapyramidal Effects Buspirone HCl (Buspirone Hcl 5 Mg Tablet) 7.5 mg PO BID [facility] Last Admin: 12/11/23 08:29 Dose: 7.5 mg Diphenhydramine HCl (Diphenhydramine Hcl 25 Mg Capsule) 50 mg PO Q6H PRN PRN Reason: Extrapyramidal Effects Divalproex Sodium (Divalproex Sodium Er 250 Mg Tab.Er.24h) 750 mg PO BEDTIME [facility] Last Admin: 12/10/23 22:02 Dose: 750 mg Docusate Sodium (Docusate Sodium 100 Mg Capsule) 100 mg PO BID [facility] Last Admin: 12/11/23 08:29 Dose: 100 mg Doxazosin Mesylate (Doxazosin Mesylate 2 Mg Tablet) 4 mg PO BEDTIME [facility]; Protocol Last Admin: 12/10/23 21:58 Dose: 4 mg Hydroxyzine HCl (Hydroxyzine Hcl 25 Mg Tablet) 25 mg PO Q6H PRN PRN Reason: Anxiety Last Admin: 12/10/23 22:07 Dose: 25 mg Levothyroxine Sodium (Levothyroxine Sodium 100 Mcg Tablet) 100 mcg PO DAILY@0630 [facility] Last Admin: 12/11/23 06:41 Dose: 100 mcg Lorazepam (Lorazepam 0.5 Mg Tablet) 0.5 mg PO BID PRN PRN Reason: Anxiety Last Admin: 12/10/23 22:08 Dose: 0.5 mg Magnesium Hydroxide (Milk Of Magnesia 30 Ml Oral.Susp) 30 ml PO DAILY PRN PRN Reason: Constipation Last Admin: 12/09/23 13:21 Dose: 30 ml Nicotine Polacrilex (Nicotine Polacrilex 2 Mg Gum) 4 mg BUCCAL Q2H PRN PRN Reason: Nicotine Cravings Ondansetron HCl (Ondansetron Odt 8 Mg Tab.Rapdis) 8 mg TRANSLINGU Q8H PRN PRN Reason: Nausea and Vomiting Quetiapine Fumarate (Quetiapine Fumarate 50 Mg Tablet) 50 mg PO BEDTIME PRN PRN Reason: insomnia Quetiapine Fumarate (Quetiapine Fumarate 100 Mg Tablet) 100 mg PO BEDTIME [facility] Allergies Allergies Allergy/AdvReac Type Severity Reaction Status Date / Time No Known Allergies Allergy Verified 12/02/23 22:45 [No Known Allergies*] Assessment & Plan Assessment & Plan (1) History of stroke: Status: Acute Code(s): Z86.73 - Personal history of transient ischemic attack (TIA), and cerebral infarction without residual deficits Assessment and Plan: 63 years old woman with a remote history of ischemic infarctions of brain with no discernible abnormality of elementary neurological examination. Her behavioral symptomatology was always complicated by significant exposure to alcohol and drugs including opiates. It is difficult to say that those strokes have resulted in these symptoms. As far as further recommendations about strokes is concerned, which might have happened around a or delivery, MRI of brain without contrast is needed to evaluate. (2) Alcohol use disorder in remission: Status: Acute Code(s): F10.91 - Alcohol use, unspecified, in remission (3) PTSD (post-traumatic stress disorder): Status: Acute Code(s): F43.10 - Post-traumatic stress disorder, unspecified Plan 12/03: start VPA 500 mg QHS for affective reactivity s/p stroke. start thorazine 50 QHS for the same as well as paranoia. taper benzos prior to discharge. MoCA for cognitive baseline. neuro consult for any Tx suggestions related to brain area damaged in stroke. 12/04: much improved affect and thought organization today. slept well. continue current mgmt. neuro assessment and recs appreciated 12/05 continues improved still some xs speech and disorganized but affect not xs reactive today- 12/06 wonders about continuing ketamine, which I told patient is contraindicated given current symptomology- CTP consider rexulti add on or inc night typical psychotic- 12/07: more reactive,labile, disorganized than last friday. declining to increase medications. c/o anti-Ch s/e. start lozenge and colace. 12/08: labile. agreeable to increase VPA to 750 mg QHS. otherwise continue current mgmt. 12/09: slightly less labile, more organized today. asking to DC thorazine and try something else due to stigma. agreeable to seroquel trial. 12/10: poor sleep, increase HS seroquel to 100 mg from 50 mg. looking better today than any day prior in terms of being organized, logical, and non-labile; yet remains paranoid, thinking sitter for her roommate might have been taking pictures of her with his cellphone and thinking people are giving her dirty looks. Reason for continued inpatient stay Substantial Risk for: inability to function and rapid decompensation Time Spent With Patient Time: Total time managing care of this patient today __25__ minutes.
[2023-12-11 20:00] VITALS: BP 127/61; PULSE 67; RESP 16; TEMP 36.6; O2SAT 96
[2023-12-11] MEDS: LORazepam 0.5 MG TABLET PO (20:41)
[2023-12-11] MEDS: Divalproex Sodium ER 250 MG TAB.ER.24H 750 MG PO (21:59)
[2023-12-11 22:00] VITALS: BP 127/61
[2023-12-11] MEDS: Doxazosin Mesylate 2 MG TABLET 4 MG PO (22:00)
[2023-12-11] MEDS: QUEtiapine Fumarate 100 MG TABLET PO (22:01)
[2023-12-11] MEDS: Milk of Magnesia 30 ML ORAL.SUSP PO (22:10)
[2023-12-12] MEDS: hydrOXYzine HCL 25 MG TABLET PO (00:17)
[2023-12-12] MEDS: Levothyroxine Sodium 100 MCG TABLET PO (06:18)
[2023-12-12 07:54] VITALS: BP 123/67; PULSE 65; RESP 14; TEMP 36.4; O2SAT 98
[2023-12-12] MEDS: busPIRone HCl 5 MG TABLET 7.5 MG PO ×2 (08:45→21:52)
[2023-12-12] MEDS: Docusate Sodium 100 MG CAPSULE PO ×2 (08:45→21:58)
[2023-12-12] MEDS: Bacitracin Oint 14 GM TUBE 1 APPL TOPICAL ×2 (08:47→22:06)
--- NOTE | 2023-12-12 15:36 | HO.PSYCHPN ---
Subjective Subjective Date of Service: 12/12/23 Reason For Visit: Paranoia Interim History: stable presentation. c/o insomnia. agrees to increase doxazosin to 5 mg QHS and sleep in sensory room. per staff, blunted affect. +groups. anxiety 5 eves, no depression. c/o insomnia. per staff, up only once overnight. Mental Status Exam Mental Status Exam Narrative: adequately dressed and groomed. no PMA/PMR. cooperative. speech nml rate, incr amount. nml loudness. decr latency. thoughts organized and linear. affect constricted, normo-intense, non-labile. mood anxious. no SI/SIBI/HI/AVH expressed. Diagnostics Vital Signs (24Hr): Vital Signs - 24 hr 12/11/23 20:00 12/11/23 22:00 12/12/23 07:54 Temperature 97.8 F 97.5 F Pulse Rate 67 65 Respiratory Rate 16 14 Blood Pressure 127/61 127/61 123/67 Pulse Oximetry 96 98 Oxygen Delivery Method Room Air Room Air BMI result Body Mass Index 26.4 Labs 12/02/23 23:10 12/02/23 23:10 Labs: Laboratory Results - last 48 hr 12/10/23 20:46 Ferritin 46 Imaging Radiology Impressions: ITS Impressions Brain MRI 12/05/23 17:47 IMPRESSION: Stable examination with a few small chronic cortical infarcts involving the right parietal lobe, both occipital lobes, and the cerebellar vermis. Otherwise unremarkable examination. No evidence of acute territorial infarct or hemorrhage. Electronically signed by: Tarik Collins MD 12/06/2023 06:03 PM EDT Medications Medications Current Medications Acetaminophen (Acetaminophen 325 Mg Tablet) 650 mg PO Q6H PRN PRN Reason: Headache/Pain Mild Scale (1-3) Last Admin: 12/10/23 22:08 Dose: 650 mg Al Hydroxide/Mg Hydroxide (Magnesium Hydrox/Alum Hydrox 30 Ml Oral.Susp) 30 ml PO Q6H PRN PRN Reason: Heartburn/Nausea Last Admin: 12/03/23 16:53 Dose: 30 ml Bacitracin (Bacitracin Oint 14 Gm Tube) 1 appl TOPICAL BID [facility]; Protocol Last Admin: 12/12/23 08:47 Dose: 1 appl Benzocaine (Throat Lozenge, Medicated Lozenge) 1 lozenge MUCOUS MEM Q1H PRN PRN Reason: Sore Throat Last Admin: 12/09/23 22:46 Dose: 1 lozenge Benztropine Mesylate (Benztropine Mesylate 1 Mg Tablet) 1 mg PO TID PRN PRN Reason: Extrapyramidal Effects Buspirone HCl (Buspirone Hcl 5 Mg Tablet) 7.5 mg PO BID [facility] Last Admin: 12/12/23 08:45 Dose: 7.5 mg Diphenhydramine HCl (Diphenhydramine Hcl 25 Mg Capsule) 50 mg PO Q6H PRN PRN Reason: Extrapyramidal Effects Divalproex Sodium (Divalproex Sodium Er 250 Mg Tab.Er.24h) 750 mg PO BEDTIME [facility] Last Admin: 12/11/23 21:59 Dose: 750 mg Docusate Sodium (Docusate Sodium 100 Mg Capsule) 100 mg PO BID [facility] Last Admin: 12/12/23 08:45 Dose: 100 mg Doxazosin Mesylate (Doxazosin Mesylate 1 Mg Tablet) 5 mg PO BEDTIME [facility]; Protocol Hydroxyzine HCl (Hydroxyzine Hcl 25 Mg Tablet) 25 mg PO Q6H PRN PRN Reason: Anxiety Last Admin: 12/12/23 00:17 Dose: 25 mg Levothyroxine Sodium (Levothyroxine Sodium 100 Mcg Tablet) 100 mcg PO DAILY@0630 [facility] Last Admin: 12/12/23 06:18 Dose: 100 mcg Lorazepam (Lorazepam 0.5 Mg Tablet) 0.5 mg PO BID PRN PRN Reason: Anxiety Last Admin: 12/11/23 20:41 Dose: 0.5 mg Magnesium Hydroxide (Milk Of Magnesia 30 Ml Oral.Susp) 30 ml PO DAILY PRN PRN Reason: Constipation Last Admin: 12/11/23 22:10 Dose: 30 ml Nicotine Polacrilex (Nicotine Polacrilex 2 Mg Gum) 4 mg BUCCAL Q2H PRN PRN Reason: Nicotine Cravings Ondansetron HCl (Ondansetron Odt 8 Mg Tab.Rapdis) 8 mg TRANSLINGU Q8H PRN PRN Reason: Nausea and Vomiting Quetiapine Fumarate (Quetiapine Fumarate 50 Mg Tablet) 50 mg PO BEDTIME PRN PRN Reason: insomnia Quetiapine Fumarate (Quetiapine Fumarate 100 Mg Tablet) 100 mg PO BEDTIME [facility] Last Admin: 12/11/23 22:01 Dose: 100 mg Allergies Allergies Allergy/AdvReac Type Severity Reaction Status Date / Time No Known Allergies Allergy Verified 12/02/23 22:45 [No Known Allergies*] Assessment & Plan Assessment & Plan (1) History of stroke: Status: Acute Code(s): Z86.73 - Personal history of transient ischemic attack (TIA), and cerebral infarction without residual deficits Assessment and Plan: 63 years old woman with a remote history of ischemic infarctions of brain with no discernible abnormality of elementary neurological examination. Her behavioral symptomatology was always complicated by significant exposure to alcohol and drugs including opiates. It is difficult to say that those strokes have resulted in these symptoms. As far as further recommendations about strokes is concerned, which might have happened around a or delivery, MRI of brain without contrast is needed to evaluate. (2) Alcohol use disorder in remission: Status: Acute Code(s): F10.91 - Alcohol use, unspecified, in remission (3) PTSD (post-traumatic stress disorder): Status: Acute Code(s): F43.10 - Post-traumatic stress disorder, unspecified Plan 12/03: start VPA 500 mg QHS for affective reactivity s/p stroke. start thorazine 50 QHS for the same as well as paranoia. taper benzos prior to discharge. MoCA for cognitive baseline. neuro consult for any Tx suggestions related to brain area damaged in stroke. 12/04: much improved affect and thought organization today. slept well. continue current mgmt. neuro assessment and recs appreciated 12/05 continues improved still some xs speech and disorganized but affect not xs reactive today- 12/06 wonders about continuing ketamine, which I told patient is contraindicated given current symptomology- CTP consider rexulti add on or inc night typical psychotic- 12/07: more reactive,labile, disorganized than last friday. declining to increase medications. c/o anti-Ch s/e. start lozenge and colace. 12/08: labile. agreeable to increase VPA to 750 mg QHS. otherwise continue current mgmt. 12/09: slightly less labile, more organized today. asking to DC thorazine and try something else due to stigma. agreeable to seroquel trial. 12/10: poor sleep, increase HS seroquel to 100 mg from 50 mg. looking better today than any day prior in terms of being organized, logical, and non-labile; yet remains paranoid, thinking sitter for her roommate might have been taking pictures of her with his cellphone and thinking people are giving her dirty looks. 12/11: poor sleep continues. increase HS doxazosin to 5 mg. otherwise continue current mgmt. Reason for continued inpatient stay Substantial Risk for: inability to function and rapid decompensation Time Spent With Patient Time: Total time managing care of this patient today __25__ minutes.
[2023-12-12 19:35] VITALS: BP 117/67; PULSE 69; RESP 16; TEMP 36.6; O2SAT 97
[2023-12-12 21:30] VITALS: BP 142/86; PULSE 74
[2023-12-12 21:54] VITALS: BP 142/86
[2023-12-12] MEDS: Doxazosin Mesylate 1 MG TABLET 5 MG PO (21:54)
[2023-12-12] MEDS: Divalproex Sodium ER 250 MG TAB.ER.24H 750 MG PO (21:57)
[2023-12-12] MEDS: QUEtiapine Fumarate 100 MG TABLET PO (21:58)
[2023-12-12] MEDS: LORazepam 0.5 MG TABLET PO (23:20)
[2023-12-12] MEDS: QUEtiapine Fumarate 50 MG TABLET PO (23:24)
[2023-12-13] MEDS: diphenhydrAMINE HCL 25 MG CAPSULE 50 MG PO (04:02)
[2023-12-13] MEDS: Levothyroxine Sodium 100 MCG TABLET PO (07:14)
[2023-12-13 07:26] VITALS: BP 126/67; PULSE 74; RESP 16; TEMP 36.4; O2SAT 98
[2023-12-13] MEDS: Docusate Sodium 100 MG CAPSULE PO ×2 (08:56→23:15)
[2023-12-13] MEDS: busPIRone HCl 5 MG TABLET 7.5 MG PO ×2 (08:56→23:15)
[2023-12-13] MEDS: Bacitracin Oint 14 GM TUBE 1 APPL TOPICAL (09:00)
[2023-12-13 19:45] VITALS: BP 150/92; PULSE 81; RESP 16; TEMP 36.6; O2SAT 98
--- NOTE | 2023-12-13 19:47 | P.PNPSI_ITS ---
Subjective Subjective Date of Service: 12/13/23 Reason For Visit: Paranoia Interim History: labile, upset at CO staying in room again last night when initially RN said CO could stay outside the room. ended up going to sleep on mattress on floor in sensory room. amenable to increase HS seroquel to 150 mg, as she did not sleep well in any case and remains paranoid. agreeable to DC ativan PRNs. per staff, +dep/anx. visible. no groups. +meds. slept in sensory room. worried about returning home to her apartment. Mental Status Exam Mental Status Exam Narrative: adequately dressed and groomed. no PMA/PMR. cooperative. speech nml rate, incr amount. incr loudness. decr latency. thoughts organized and linear. affect constricted, hyper-intense, mod-labile. mood anxious, irritable. no SI/SIBI/HI/AVH expressed. Diagnostics Vital Signs (24Hr): Vital Signs - 24 hr 12/12/23 21:30 12/12/23 21:54 12/13/23 07:26 Temperature 97.5 F Pulse Rate 74 74 Respiratory Rate 16 Blood Pressure 142/86 H 142/86 H 126/67 Pulse Oximetry 98 Oxygen Delivery Method Room Air BMI result Body Mass Index 26.4 Labs 12/02/23 23:10 12/02/23 23:10 Imaging Radiology Impressions: ITS Impressions Brain MRI 12/05/23 17:47 IMPRESSION: Stable examination with a few small chronic cortical infarcts involving the right parietal lobe, both occipital lobes, and the cerebellar vermis. Otherwise unremarkable examination. No evidence of acute territorial infarct or hemorrhage. Electronically signed by: Tarik Collins MD 12/06/2023 06:03 PM EDT RP Medications Medications Current Medications Acetaminophen (Acetaminophen 325 Mg Tablet) 650 mg PO Q6H PRN PRN Reason: Headache/Pain Mild Scale (1-3) Last Admin: 12/10/23 22:08 Dose: 650 mg Al Hydroxide/Mg Hydroxide (Magnesium Hydrox/Alum Hydrox 30 Ml Oral.Susp) 30 ml PO Q6H PRN PRN Reason: Heartburn/Nausea Last Admin: 12/03/23 16:53 Dose: 30 ml Bacitracin (Bacitracin Oint 14 Gm Tube) 1 appl TOPICAL BID [facility]; Protocol Last Admin: 12/13/23 09:00 Dose: 1 appl Benzocaine (Throat Lozenge, Medicated Lozenge) 1 lozenge MUCOUS MEM Q1H PRN PRN Reason: Sore Throat Last Admin: 12/09/23 22:46 Dose: 1 lozenge Benztropine Mesylate (Benztropine Mesylate 1 Mg Tablet) 1 mg PO TID PRN PRN Reason: Extrapyramidal Effects Buspirone HCl (Buspirone Hcl 5 Mg Tablet) 7.5 mg PO BID [facility] Last Admin: 12/13/23 08:56 Dose: 7.5 mg Diphenhydramine HCl (Diphenhydramine Hcl 25 Mg Capsule) 50 mg PO Q6H PRN PRN Reason: Extrapyramidal Effects Last Admin: 12/13/23 04:02 Dose: 50 mg Divalproex Sodium (Divalproex Sodium Er 250 Mg Tab.Er.24h) 750 mg PO BEDTIME [facility] Last Admin: 12/12/23 21:57 Dose: 750 mg Docusate Sodium (Docusate Sodium 100 Mg Capsule) 100 mg PO BID [facility] Last Admin: 12/13/23 08:56 Dose: 100 mg Doxazosin Mesylate (Doxazosin Mesylate 1 Mg Tablet) 5 mg PO BEDTIME [facility]; Protocol Last Admin: 12/12/23 21:54 Dose: 5 mg Hydroxyzine HCl (Hydroxyzine Hcl 25 Mg Tablet) 25 mg PO Q6H PRN PRN Reason: Anxiety Last Admin: 12/12/23 00:17 Dose: 25 mg Levothyroxine Sodium (Levothyroxine Sodium 100 Mcg Tablet) 100 mcg PO DAILY@0630 [facility] Last Admin: 12/13/23 07:14 Dose: 100 mcg Lorazepam (Lorazepam 0.5 Mg Tablet) 0.5 mg PO BID PRN PRN Reason: Anxiety Last Admin: 12/12/23 23:20 Dose: 0.5 mg Magnesium Hydroxide (Milk Of Magnesia 30 Ml Oral.Susp) 30 ml PO DAILY PRN PRN Reason: Constipation Last Admin: 12/11/23 22:10 Dose: 30 ml Nicotine Polacrilex (Nicotine Polacrilex 2 Mg Gum) 4 mg BUCCAL Q2H PRN PRN Reason: Nicotine Cravings Ondansetron HCl (Ondansetron Odt 8 Mg Tab.Rapdis) 8 mg TRANSLINGU Q8H PRN PRN Reason: Nausea and Vomiting Quetiapine Fumarate (Quetiapine Fumarate 50 Mg Tablet) 50 mg PO BEDTIME PRN PRN Reason: insomnia Last Admin: 12/12/23 23:24 Dose: 50 mg Quetiapine Fumarate (Quetiapine Fumarate 50 Mg Tablet) 150 mg PO BEDTIME [facility] Allergies Allergies Allergy/AdvReac Type Severity Reaction Status Date / Time No Known Allergies Allergy Verified 12/02/23 22:45 [No Known Allergies*] Assessment & Plan Assessment & Plan (1) History of stroke: Status: Acute Code(s): Z86.73 - Personal history of transient ischemic attack (TIA), and cerebral infarction without residual deficits Assessment and Plan: 63 years old woman with a remote history of ischemic infarctions of brain with no discernible abnormality of elementary neurological examination. Her behavioral symptomatology was always complicated by significant exposure to alcohol and drugs including opiates. It is difficult to say that those strokes have resulted in these symptoms. As far as further recommendations about strokes is concerned, which might have happened around a or delivery, MRI of brain without contrast is needed to evaluate. (2) Alcohol use disorder in remission: Status: Acute Code(s): F10.91 - Alcohol use, unspecified, in remission (3) PTSD (post-traumatic stress disorder): Status: Acute Code(s): F43.10 - Post-traumatic stress disorder, unspecified Plan 12/03: start VPA 500 mg QHS for affective reactivity s/p stroke. start thorazine 50 QHS for the same as well as paranoia. taper benzos prior to discharge. MoCA for cognitive baseline. neuro consult for any Tx suggestions related to brain area damaged in stroke. 12/04: much improved affect and thought organization today. slept well. continue current mgmt. neuro assessment and recs appreciated 12/05 continues improved still some xs speech and disorganized but affect not xs reactive today- 12/06 wonders about continuing ketamine, which I told patient is contraindicated given current symptomology- CTP consider rexulti add on or inc night typical psychotic- 12/07: more reactive,labile, disorganized than last friday. declining to increase medications. c/o anti-Ch s/e. start lozenge and colace. 12/08: labile. agreeable to increase VPA to 750 mg QHS. otherwise continue current mgmt. 12/09: slightly less labile, more organized today. asking to DC thorazine and try something else due to stigma. agreeable to seroquel trial. 12/10: poor sleep, increase HS seroquel to 100 mg from 50 mg. looking better today than any day prior in terms of being organized, logical, and non-labile; yet remains paranoid, thinking sitter for her roommate might have been taking pictures of her with his cellphone and thinking people are giving her dirty looks. 12/11: poor sleep continues. increase HS doxazosin to 5 mg. otherwise continue current mgmt. 12/12: poor sleep continues. slightly better in sensory room. more agitated and paranoid and irritable today. agreeable to increase HS seroquel to 150 mg. Reason for continued inpatient stay Substantial Risk for: inability to function and rapid decompensation Time Spent With Patient Time: Total time managing care of this patient today ____ minutes.
[2023-12-13 23:14] VITALS: BP 137/78
[2023-12-13] MEDS: Divalproex Sodium ER 250 MG TAB.ER.24H 750 MG PO (23:14)
[2023-12-13] MEDS: Doxazosin Mesylate 1 MG TABLET 5 MG PO (23:14)
[2023-12-13] MEDS: QUEtiapine Fumarate 50 MG TABLET 150 MG PO (23:15)
[2023-12-14] MEDS: Levothyroxine Sodium 100 MCG TABLET PO (07:13)
[2023-12-14] MEDS: Acetaminophen 325 MG TABLET 650 MG PO (07:22)
[2023-12-14 07:34] VITALS: BP 125/66; PULSE 69; RESP 16; TEMP 36.4; O2SAT 98
[2023-12-14] MEDS: busPIRone HCl 5 MG TABLET 7.5 MG PO ×2 (09:27→22:47)
[2023-12-14] MEDS: Docusate Sodium 100 MG CAPSULE PO ×2 (09:29→22:48)
[2023-12-14] MEDS: Bacitracin Oint 14 GM TUBE 1 APPL TOPICAL (09:35)
[2023-12-14] MEDS: Magnesium Hydrox/Alum Hydrox 30 ML ORAL.SUSP PO (09:35)
--- NOTE | 2023-12-14 17:32 | HO.PSYCHPN ---
Subjective Subjective Date of Service: 12/14/23 Reason For Visit: Paranoia Interim History: sitter outside [facility] worked well, slept better last night., 4 hours. amenable to increase doxazosin to 6 mg. no longer focused on paranoid conspiracies. per staff, did better with sitter outside the room. anxious, paranoid. slept in room, 8 hours. no issues. Mental Status Exam Mental Status Exam Narrative: adequately dressed and groomed. no PMA/PMR. cooperative. speech nml rate, incr amount. incr loudness. decr latency. thoughts organized and linear. affect constricted, hyper-intense, non-labile. mood anxious. no SI/SIBI/HI/AVH expressed. Diagnostics Vital Signs (24Hr): Vital Signs - 24 hr 12/13/23 19:45 12/13/23 23:14 12/14/23 07:34 Temperature 97.8 F 97.6 F Pulse Rate 81 69 Respiratory Rate 16 16 Blood Pressure 150/92 H 137/78 125/66 Pulse Oximetry 98 98 Oxygen Delivery Method Room Air Room Air BMI result Body Mass Index 26.4 Labs 12/02/23 23:10 12/02/23 23:10 Imaging Radiology Impressions: ITS Impressions Brain MRI 12/05/23 17:47 IMPRESSION: Stable examination with a few small chronic cortical infarcts involving the right parietal lobe, both occipital lobes, and the cerebellar vermis. Otherwise unremarkable examination. No evidence of acute territorial infarct or hemorrhage. Electronically signed by: Tarik Collins MD 12/06/2023 06:03 PM EDT Medications Medications Current Medications Acetaminophen (Acetaminophen 325 Mg Tablet) 650 mg PO Q6H PRN PRN Reason: Headache/Pain Mild Scale (1-3) Last Admin: 12/14/23 07:22 Dose: 650 mg Al Hydroxide/Mg Hydroxide (Magnesium Hydrox/Alum Hydrox 30 Ml Oral.Susp) 30 ml PO Q6H PRN PRN Reason: Heartburn/Nausea Last Admin: 12/14/23 09:35 Dose: 30 ml Bacitracin (Bacitracin Oint 14 Gm Tube) 1 appl TOPICAL BID [facility]; Protocol Last Admin: 12/14/23 09:35 Dose: 1 appl Benzocaine (Throat Lozenge, Medicated Lozenge) 1 lozenge MUCOUS MEM Q1H PRN PRN Reason: Sore Throat Last Admin: 12/09/23 22:46 Dose: 1 lozenge Benztropine Mesylate (Benztropine Mesylate 1 Mg Tablet) 1 mg PO TID PRN PRN Reason: Extrapyramidal Effects Buspirone HCl (Buspirone Hcl 5 Mg Tablet) 7.5 mg PO BID [facility] Last Admin: 12/14/23 09:27 Dose: 7.5 mg Diphenhydramine HCl (Diphenhydramine Hcl 25 Mg Capsule) 50 mg PO Q6H PRN PRN Reason: Extrapyramidal Effects Last Admin: 12/13/23 04:02 Dose: 50 mg Divalproex Sodium (Divalproex Sodium Er 250 Mg Tab.Er.24h) 750 mg PO BEDTIME [facility] Last Admin: 12/13/23 23:14 Dose: 750 mg Docusate Sodium (Docusate Sodium 100 Mg Capsule) 100 mg PO BID [facility] Last Admin: 12/14/23 09:29 Dose: 100 mg Doxazosin Mesylate (Doxazosin Mesylate 2 Mg Tablet) 6 mg PO BEDTIME [facility]; Protocol Hydroxyzine HCl (Hydroxyzine Hcl 25 Mg Tablet) 25 mg PO Q6H PRN PRN Reason: Anxiety Last Admin: 12/12/23 00:17 Dose: 25 mg Levothyroxine Sodium (Levothyroxine Sodium 100 Mcg Tablet) 100 mcg PO DAILY@0630 [facility] Last Admin: 12/14/23 07:13 Dose: 100 mcg Magnesium Hydroxide (Milk Of Magnesia 30 Ml Oral.Susp) 30 ml PO DAILY PRN PRN Reason: Constipation Last Admin: 12/11/23 22:10 Dose: 30 ml Nicotine Polacrilex (Nicotine Polacrilex 2 Mg Gum) 4 mg BUCCAL Q2H PRN PRN Reason: Nicotine Cravings Ondansetron HCl (Ondansetron Odt 8 Mg Tab.Rapdis) 8 mg TRANSLINGU Q8H PRN PRN Reason: Nausea and Vomiting Quetiapine Fumarate (Quetiapine Fumarate 50 Mg Tablet) 50 mg PO BEDTIME PRN PRN Reason: insomnia Last Admin: 12/12/23 23:24 Dose: 50 mg Quetiapine Fumarate (Quetiapine Fumarate 50 Mg Tablet) 150 mg PO BEDTIME [facility] Last Admin: 12/13/23 23:15 Dose: 150 mg Allergies Allergies Allergy/AdvReac Type Severity Reaction Status Date / Time No Known Allergies Allergy Verified 12/02/23 22:45 [No Known Allergies*] Assessment & Plan Assessment & Plan (1) History of stroke: Status: Acute Code(s): Z86.73 - Personal history of transient ischemic attack (TIA), and cerebral infarction without residual deficits Assessment and Plan: 63 years old woman with a remote history of ischemic infarctions of brain with no discernible abnormality of elementary neurological examination. Her behavioral symptomatology was always complicated by significant exposure to alcohol and drugs including opiates. It is difficult to say that those strokes have resulted in these symptoms. As far as further recommendations about strokes is concerned, which might have happened around a or delivery, MRI of brain without contrast is needed to evaluate. (2) Alcohol use disorder in remission: Status: Acute Code(s): F10.91 - Alcohol use, unspecified, in remission (3) PTSD (post-traumatic stress disorder): Status: Acute Code(s): F43.10 - Post-traumatic stress disorder, unspecified Plan 12/03: start VPA 500 mg QHS for affective reactivity s/p stroke. start thorazine 50 QHS for the same as well as paranoia. taper benzos prior to discharge. MoCA for cognitive baseline. neuro consult for any Tx suggestions related to brain area damaged in stroke. 12/04: much improved affect and thought organization today. slept well. continue current mgmt. neuro assessment and recs appreciated 12/05 continues improved still some xs speech and disorganized but affect not xs reactive today- 12/06 wonders about continuing ketamine, which I told patient is contraindicated given current symptomology- CTP consider rexulti add on or inc night typical psychotic- 12/07: more reactive,labile, disorganized than last friday. declining to increase medications. c/o anti-Ch s/e. start lozenge and colace. 12/08: labile. agreeable to increase VPA to 750 mg QHS. otherwise continue current mgmt. 12/09: slightly less labile, more organized today. asking to DC thorazine and try something else due to stigma. agreeable to seroquel trial. 12/10: poor sleep, increase HS seroquel to 100 mg from 50 mg. looking better today than any day prior in terms of being organized, logical, and non-labile; yet remains paranoid, thinking sitter for her roommate might have been taking pictures of her with his cellphone and thinking people are giving her dirty looks. 12/11: poor sleep continues. increase HS doxazosin to 5 mg. otherwise continue current mgmt. 12/12: poor sleep continues. slightly better in sensory room. more agitated and paranoid and irritable today. agreeable to increase HS seroquel to 150 mg. 12/13: slept better last night with CO staff in [place]. increase doxazosin to 6 mg QHS. otherwise continue current mgmt. Reason for continued inpatient stay Substantial Risk for: inability to function and rapid decompensation Time Spent With Patient Time: Total time managing care of this patient today ____ minutes.
[2023-12-14] MEDS: LORazepam 0.5 MG TABLET PO (18:41)
[2023-12-14 20:00] VITALS: BP 114/72; PULSE 83; RESP 16; TEMP 36.9; O2SAT 95
[2023-12-14 22:44] VITALS: BP 122/70; PULSE 68
[2023-12-14] MEDS: Throat Lozenge, Medicated LOZENGE 1 LOZENGE MUCOUS MEM (22:48)
[2023-12-14] MEDS: Doxazosin Mesylate 2 MG TABLET 6 MG PO (22:48)
[2023-12-14] MEDS: hydrOXYzine HCL 25 MG TABLET PO (22:48)
[2023-12-14] MEDS: QUEtiapine Fumarate 50 MG TABLET 150 MG PO (22:49)
[2023-12-14] MEDS: Divalproex Sodium ER 250 MG TAB.ER.24H 750 MG PO (22:49)
[2023-12-15] MEDS: Levothyroxine Sodium 100 MCG TABLET PO (06:55)
[2023-12-15 07:44] VITALS: BP 111/61; PULSE 68; RESP 16; TEMP 36.3; O2SAT 95
[2023-12-15] MEDS: Docusate Sodium 100 MG CAPSULE PO ×2 (08:35→22:27)
[2023-12-15] MEDS: busPIRone HCl 5 MG TABLET 7.5 MG PO ×2 (08:35→22:25)
--- NOTE | 2023-12-15 18:18 | P.PNPSI_ITS ---
Subjective Subjective Date of Service: 12/15/23 Reason For Visit: Paranoia Interim History: reports she slept quite well last night. woke up some but fell back asleep easily. would like to continue present regimen. per staff, DC wed. slept 7 hours. got 1x dose of ativan 0.5 mg last ildefonso. Mental Status Exam Mental Status Exam Narrative: adequately dressed and groomed. no PMA/PMR. cooperative. speech nml rate, incr amount. incr loudness. decr latency. thoughts organized and linear. affect constricted, hyper-intense, non-labile. mood anxious. no SI/SIBI/HI/AVH expressed. Diagnostics Vital Signs (24Hr): Vital Signs - 24 hr 12/14/23 20:00 12/14/23 22:44 12/15/23 07:44 Temperature 98.5 F 97.4 F Pulse Rate 83 68 68 Respiratory Rate 16 16 Blood Pressure 114/72 122/70 111/61 Pulse Oximetry 95 95 Oxygen Delivery Method Room Air Room Air BMI result Body Mass Index 26.4 Labs 12/02/23 23:10 12/02/23 23:10 Imaging Radiology Impressions: ITS Impressions Brain MRI 12/05/23 17:47 IMPRESSION: Stable examination with a few small chronic cortical infarcts involving the right parietal lobe, both occipital lobes, and the cerebellar vermis. Otherwise unremarkable examination. No evidence of acute territorial infarct or hemorrhage. Electronically signed by: Tarik Collins MD 12/06/2023 06:03 PM EDT RP Medications Medications Current Medications Acetaminophen (Acetaminophen 325 Mg Tablet) 650 mg PO Q6H PRN PRN Reason: Headache/Pain Mild Scale (1-3) Last Admin: 12/14/23 07:22 Dose: 650 mg Al Hydroxide/Mg Hydroxide (Magnesium Hydrox/Alum Hydrox 30 Ml Oral.Susp) 30 ml PO Q6H PRN PRN Reason: Heartburn/Nausea Last Admin: 12/14/23 09:35 Dose: 30 ml Bacitracin (Bacitracin Oint 14 Gm Tube) 1 appl TOPICAL BID [facility]; Protocol Last Admin: 12/15/23 08:39 Dose: Not Given Benzocaine (Throat Lozenge, Medicated Lozenge) 1 lozenge MUCOUS MEM Q1H PRN PRN Reason: Sore Throat Last Admin: 12/14/23 22:48 Dose: 1 lozenge Benztropine Mesylate (Benztropine Mesylate 1 Mg Tablet) 1 mg PO TID PRN PRN Reason: Extrapyramidal Effects Buspirone HCl (Buspirone Hcl 5 Mg Tablet) 7.5 mg PO BID [facility] Last Admin: 12/15/23 08:35 Dose: 7.5 mg Diphenhydramine HCl (Diphenhydramine Hcl 25 Mg Capsule) 50 mg PO Q6H PRN PRN Reason: Extrapyramidal Effects Last Admin: 12/13/23 04:02 Dose: 50 mg Divalproex Sodium (Divalproex Sodium Er 250 Mg Tab.Er.24h) 750 mg PO BEDTIME [facility] Last Admin: 12/14/23 22:49 Dose: 750 mg Docusate Sodium (Docusate Sodium 100 Mg Capsule) 100 mg PO BID [facility] Last Admin: 12/15/23 08:35 Dose: 100 mg Doxazosin Mesylate (Doxazosin Mesylate 2 Mg Tablet) 6 mg PO BEDTIME [facility]; Protocol Last Admin: 12/14/23 22:48 Dose: 6 mg Hydroxyzine HCl (Hydroxyzine Hcl 25 Mg Tablet) 25 mg PO Q6H PRN PRN Reason: Anxiety Last Admin: 12/14/23 22:48 Dose: 25 mg Levothyroxine Sodium (Levothyroxine Sodium 100 Mcg Tablet) 100 mcg PO DAILY@0630 [facility] Last Admin: 12/15/23 06:55 Dose: 100 mcg Magnesium Hydroxide (Milk Of Magnesia 30 Ml Oral.Susp) 30 ml PO DAILY PRN PRN Reason: Constipation Last Admin: 12/11/23 22:10 Dose: 30 ml Nicotine Polacrilex (Nicotine Polacrilex 2 Mg Gum) 4 mg BUCCAL Q2H PRN PRN Reason: Nicotine Cravings Ondansetron HCl (Ondansetron Odt 8 Mg Tab.Rapdis) 8 mg TRANSLINGU Q8H PRN PRN Reason: Nausea and Vomiting Quetiapine Fumarate (Quetiapine Fumarate 50 Mg Tablet) 50 mg PO BEDTIME PRN PRN Reason: insomnia Last Admin: 12/12/23 23:24 Dose: 50 mg Quetiapine Fumarate (Quetiapine Fumarate 50 Mg Tablet) 150 mg PO BEDTIME [facility] Last Admin: 12/14/23 22:49 Dose: 150 mg Allergies Allergies Allergy/AdvReac Type Severity Reaction Status Date / Time No Known Allergies Allergy Verified 12/02/23 22:45 [No Known Allergies*] Assessment & Plan Assessment & Plan (1) History of stroke: Status: Acute Code(s): Z86.73 - Personal history of transient ischemic attack (TIA), and cerebral infarction without residual deficits Assessment and Plan: 63 years old woman with a remote history of ischemic infarctions of brain with no discernible abnormality of elementary neurological examination. Her behavioral symptomatology was always complicated by significant exposure to alcohol and drugs including opiates. It is difficult to say that those strokes have resulted in these symptoms. As far as further recommendations about strokes is concerned, which might have happened around a or delivery, MRI of brain without contrast is needed to evaluate. (2) Alcohol use disorder in remission: Status: Acute Code(s): F10.91 - Alcohol use, unspecified, in remission (3) PTSD (post-traumatic stress disorder): Status: Acute Code(s): F43.10 - Post-traumatic stress disorder, unspecified Plan 12/03: start VPA 500 mg QHS for affective reactivity s/p stroke. start thorazine 50 QHS for the same as well as paranoia. taper benzos prior to discharge. MoCA for cognitive baseline. neuro consult for any Tx suggestions related to brain area damaged in stroke. 12/04: much improved affect and thought organization today. slept well. continue current mgmt. neuro assessment and recs appreciated 12/05 continues improved still some xs speech and disorganized but affect not xs reactive today- 12/06 wonders about continuing ketamine, which I told patient is contraindicated given current symptomology- CTP consider rexulti add on or inc night typical psychotic- 12/07: more reactive,labile, disorganized than last friday. declining to increase medications. c/o anti-Ch s/e. start lozenge and colace. 12/08: labile. agreeable to increase VPA to 750 mg QHS. otherwise continue current mgmt. 12/09: slightly less labile, more organized today. asking to DC thorazine and try something else due to stigma. agreeable to seroquel trial. 12/10: poor sleep, increase HS seroquel to 100 mg from 50 mg. looking better today than any day prior in terms of being organized, logical, and non-labile; yet remains paranoid, thinking sitter for her roommate might have been taking pictures of her with his cellphone and thinking people are giving her dirty looks. 12/11: poor sleep continues. increase HS doxazosin to 5 mg. otherwise continue current mgmt. 12/12: poor sleep continues. slightly better in sensory room. more agitated and paranoid and irritable today. agreeable to increase HS seroquel to 150 mg. 12/13: slept better last night with CO staff in [place]. increase doxazosin to 6 mg QHS. otherwise continue current mgmt. 12/14: slept very well last night. continue current mgmt. . Reason for continued inpatient stay Substantial Risk for: inability to function and rapid decompensation Time Spent With Patient Time: Total time managing care of this patient today ____ minutes.
[2023-12-15 20:00] VITALS: BP 137/79; PULSE 65; RESP 16; TEMP 36.8; O2SAT 98
[2023-12-15] MEDS: QUEtiapine Fumarate 50 MG TABLET PO (21:06)
[2023-12-15 22:22] VITALS: BP 143/84; PULSE 69
[2023-12-15] MEDS: Throat Lozenge, Medicated LOZENGE 1 LOZENGE MUCOUS MEM (22:26)
[2023-12-15] MEDS: QUEtiapine Fumarate 50 MG TABLET 150 MG PO (22:26)
[2023-12-15] MEDS: hydrOXYzine HCL 25 MG TABLET PO (22:26)
[2023-12-15] MEDS: Doxazosin Mesylate 2 MG TABLET 6 MG PO (22:27)
[2023-12-15] MEDS: Divalproex Sodium ER 250 MG TAB.ER.24H 750 MG PO (22:27)
[2023-12-16] MEDS: Levothyroxine Sodium 100 MCG TABLET PO (06:50)
[2023-12-16 08:00] VITALS: BP 115/61; PULSE 64; TEMP 36.1; O2SAT 96
[2023-12-16] MEDS: busPIRone HCl 5 MG TABLET 7.5 MG PO ×2 (08:36→21:29)
[2023-12-16] MEDS: Docusate Sodium 100 MG CAPSULE PO ×2 (08:36→21:29)
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
[2023-12-16] MEDS: hydrOXYzine HCL 25 MG TABLET PO (17:08)
[2023-12-16 19:58] LABS: MANUAL DIFF FLAG NO
[2023-12-16 20:05] LABS: Basophils Percent Auto 0.6 % (0-2); Eosinophils Absolute Auto 0.2 X10*3/uL (0.0-0.4); Eosinophils Percent Auto 3.4 % (0-4); Hematocrit 41.6 % (37.0-47.0); Hemoglobin 13.9 g/dl (12.0-16.0); Imm Gran Abs Auto 0.01 X10*3/uL (0.00-0.03); Imm Gran Pct Auto 0.2 % (0.0-0.4); Lymphocytes Absolute Auto 1.6 X10*3/uL (1.2-4.9); Lymphocytes Percent Auto 31.5 % (20-40); Mean Corpuscular HGB Conc 33.4 g/dl (31.0-35.0); Mean Corpuscular Hemoglobin 29.4 pg (27.0-33.0); Mean Corpuscular Volume 87.9 fL (80.0-98.0); Mean Platelet Volume 10.4 fL (9.4-12.3); Monocytes Absolute Auto 0.3 X10*3/uL (0.1-1.2); Monocytes Percent Auto 6.5 % (2-11); Neutrophils Absolute Auto 2.9 x10*3/uL (2.0-8.3); Neutrophils Percent Auto 57.8 % (45-73); Platelet Count 240 X10*3/uL (160-400); Red Blood Count 4.73 X10*6/uL (4.20-5.50); Red Cell Distribution Width 12.7 % (11.0-16.0); White Blood Count 5.1 X10*3/uL (4.8-10.8)
[2023-12-16 20:13] LABS: Valproate 69.7 mcg/mL (50.0-100.0)
[2023-12-16 20:16] LABS: Alanine Aminotransferase 22 U/L (0-31); Albumin Level 4.7 g/dL (3.5-5.0); Alkaline Phosphatase 66 U/L (39-117); Anion Gap 11 (12-20); Aspartate Amino Transferase 22 U/L (5-31); Bilirubin Direct 0.1 mg/dL (0.0-0.5); Bilirubin Total 0.3 mg/dL (0.0-1.0); Blood Urea Nitrogen 9 mg/dL (9-16); Calcium 10.5 mg/dL (8.4-10.2); Carbon Dioxide 28 mmol/L (22-29); Chloride 108 mmol/L (96-108); Creatinine Clr Calc Pharmacy 63.3; Estimated Glomerular Filt Rate > 60; Glucose Random 132 mg/dL (60-115); Potassium 4.1 mmol/L (3.3-5.1); Sodium 143 mmol/L (135-145); Total Protein 7.2 g/dL (6.5-8.0)
[2023-12-16 21:23] VITALS: BP 127/72; PULSE 67; O2SAT 96
[2023-12-16] MEDS: QUEtiapine Fumarate 50 MG TABLET 150 MG PO (21:28)
[2023-12-16] MEDS: Doxazosin Mesylate 2 MG TABLET 6 MG PO (21:29)
[2023-12-16] MEDS: Divalproex Sodium ER 250 MG TAB.ER.24H 750 MG PO (21:30)
[2023-12-17] MEDS: Levothyroxine Sodium 100 MCG TABLET PO (05:58)
[2023-12-17 07:52] VITALS: BP 115/58; PULSE 79; RESP 14; TEMP 36.4; O2SAT 94
[2023-12-17] MEDS: Docusate Sodium 100 MG CAPSULE PO (08:49)
[2023-12-17] MEDS: busPIRone HCl 5 MG TABLET 7.5 MG PO (08:49)
== END 2023-12-17 10:10 | disposition home or self-care (01) | DRG 882 ==
LOC: HO.ED 12-03 09:12 → HO.PADLT16 12-03 12:43
PROVIDERS: Admitting Provider Psychiatry & Neurology Psychiatry; Emergency Provider Internal Medicine; PCP Family Medicine; Visit Provider Psychiatry & Neurology Psychiatry
DX: F43.12 Post-traumatic stress disorder, chronic (principal); F10.91 Alcohol use, unspecified, in remission; Z86.73 Personal history of transient ischemic attack (TIA), and cerebral infarction without residual deficits; Z98.84 Bariatric surgery status; Z79.890 Hormone replacement therapy; Z79.899 Other long term (current) drug therapy
CPT/HCPCS: 36415; 70551; 80048; 80053; 80061; 80076; 80143; 80164; 80307; 81003; 82607; 82728; 82746; 83036; 84439; 84443; 85025; 85027; 93005; 99285; S9485

== ENCOUNTER → 2023-12-03 12:33 | Outpatient (BNV) | payer OTHER, SELFPAY | PROVIDERS: Admitting Provider Psychiatry & Neurology Psychiatry; Emergency Provider Internal Medicine; PCP Family Medicine; Visit Provider Psychiatry & Neurology Neurology | DX: I69.398 Other sequelae of cerebral infarction (principal) | CPT/HCPCS: 99222 ==

== ENCOUNTER → 2023-12-03 12:33 | Outpatient (BNV) | payer OTHER, SELFPAY | PROVIDERS: Admitting Provider Psychiatry & Neurology Psychiatry; Emergency Provider Internal Medicine; PCP Family Medicine; Visit Provider Psychiatry & Neurology Psychiatry | DX: F10.91 Alcohol use, unspecified, in remission (principal); F43.11 Post-traumatic stress disorder, acute; Z86.73 Personal history of transient ischemic attack (TIA), and cerebral infarction without residual deficits | CPT/HCPCS: 90792; 99231; 99232; 99239 ==

== ENCOUNTER 2023-12-26 09:00 | Outpatient (RCR) | payer OTHER, SELFPAY ==
[2023-12-25 11:35] VITALS: BMI 26.8
[2023-12-25 11:36] VITALS: BP 120/70; PULSE 56; TEMP 37.1
--- NOTE | 2023-12-25 13:06 | PC.ADMIT ---
Patient is a 63 year old single female who was referred to [facility] by [facility] inpatient behavioral health unit where she was admitted from 12/02-12/16/23. Patient reportedly struggling with the loss of her mother in November 2023 and reports fractured family relationships with her sisters. Patient reports increased paranoia at that time d/t increased stress and feeling overwhelmed with the loss of her mother and family dynamics. Patient also was dealing with a salivary gland infection at that time and was hospitalized as a result treated with IV antibiotics. Patient stated she was receiving intranasal Ketamine treatments twice a week however they were discontinued d/t the infection. Patient plans on continuing with the treatments and reported she has an appointment today. Patient also reportedly had some medication changes prior to hospitalization. Per records, patient reported she did not feel safe in her apartment, afraid to leave as she believed people were talking about her and that most tenants were mentally ill or engaged in criminal activity. Toxicology screen done on 12/03/23 positive for marijuana and Benzodiazapines which she is prescribed. Depakote level 69.7 on 12/16/23. Patient currently is alert and oriented x4. Calm and cooperative. Presented with depressed mood and anxious affect. Denied Si, no HI. Patient was given a copy of her safety plan if needed. She denied any paranoid thoughts. Patient did not appear to be responding to internal stimuli. Did not present with any paranoid thoughts. Patient does reports using Marijuana daily. Educated patient on mental and physical effects of Marijuana use and possible connection to paranoid thoughts. Medications reconciled with patient and [facility] [place] [place] inpatient discharge medication list.
--- NOTE | 2023-12-25 15:34 | HO.PHP ---
Client's case has been opened and reviewed in team
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
--- NOTE | 2023-12-29 10:06 | HO.PHP ---
Steph is not scheduled for program today, December 29, 2023, due to having an appointment today. Steph will be in attendance to program tomorrow.
--- NOTE | 2023-12-30 12:45 | HO.PHP ---
Steph did not show up for programming today. Pt called at roughly 9:15 am. Pt stated she would not be coming in today, said she was not feeling well, reported anxiety, feeling tires and had appts to go to, felt she was struggling with motivation. Steph reported she is safe, denied SI and denied substance use. Stated she will try to come in tomorrow. Pt encouraged to come in and not miss any more days so she can benefit from the program and receive support for her depression and anxiety symptoms. Pt stated she will try. Appreciative for staff support.
--- NOTE | 2023-12-31 11:00 | HO.PHP ---
Steph did not show up for Programming again today. Pt has missed 3 days in a row. 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 Stated she has several appts in place and things to do to work towards restarting Ketamine treatment at [facility], all which will continue to cause Steph to miss more days at [facility]. Pt states she would like to do both programs but is aware she can not miss too many days so would like to restart at [facility] in a few weeks, IOP if possible. Steph was provided the contact info of [facility] staff Madhavi to call and reschedule and inquire of IOP. Pt forthcoming, motivated in her treatment and open to returning. Steph reports she is safe, denies SI, no safety concerns.
== END 2023-12-26 23:59 | disposition home or self-care (01) ==
LOC: HO.PHPA 09:00
PROVIDERS: Visit Provider Psychiatry & Neurology Psychiatry
DX: F32.A Depression, unspecified (principal); F22 Delusional disorders
CPT/HCPCS: 90791; 90853

== ENCOUNTER → 2023-12-26 09:00 | Outpatient (BNV) | payer OTHER, SELFPAY | PROVIDERS: Visit Provider Psychiatry & Neurology Psychiatry | DX: F43.10 Post-traumatic stress disorder, unspecified (principal); F39 Unspecified mood [affective] disorder; F40.8 Other phobic anxiety disorders; F12.99 Cannabis use, unspecified with unspecified cannabis-induced disorder; R41.840 Attention and concentration deficit; Z86.73 Personal history of transient ischemic attack (TIA), and cerebral infarction without residual deficits | CPT/HCPCS: 99499 ==

== ENCOUNTER 2024-02-27 07:24 | Outpatient (RCR) | payer OTHER, SELFPAY | END 2024-02-27 11:36 | disposition home or self-care (01) | LOC: HO.IOP 07:24 | PROVIDERS: Visit Provider Psychiatry & Neurology Psychiatry | DX: F43.10 Post-traumatic stress disorder, unspecified (principal) ==